=== PATIENT | male | born 1985 | race African-American/Black ===

== ENCOUNTER 2017-12-29 09:58 | Observation (INO) | payer SELFPAY ==
[2017-12-29 10:58] LABS: BILIRUBIN,URINE NEGATIVE (NEG); CLARITY,URINE CLEAR; COLOR,URINE YELLOW; GLUCOSE,URINE NEGATIVE (NEG); NITRITE,URINE NEGATIVE (NEG); PROTEIN,URINE NEGATIVE (NEG-TRACE)
[2017-12-29 11:07] LABS: RBC,URINE 0 /HPF (0-2); SQUAMOUS EPITHELIAL CELL,UR FEW /LPF
[2017-12-29 11:08] LABS: ADD MAN DIFF? YES; BACTERIA,URINE 0 /HPF (0-FEW); BASO # 0.1 x10^3/uL (0.0-0.2); BASO % 1 % (0-3); EOS # 0.2 x10^3/uL (0.0-0.7); EOS % 2 % (0-3); HEMOGLOBIN 12.2 g/dL (13.0-17.5); LYMPH # 2.8 x10^3/uL (1.0-4.8); LYMPH % 27 % (24-48); MEAN CORPUSCULAR HEMOGLOBIN 30 pg (25-35); MEAN CORPUSCULAR HGB CONC 36 g/dL (31-37); MEAN CORPUSCULAR VOLUME 83 fL (79-100); MONO # 2.2 x10^3/uL (0.0-1.1); MONO % 21 % (0-9); NEUT % 48 % (31-73); PLATELET COUNT 348 x10^3/uL (140-400); RED BLOOD COUNT 4.11 x10^6/uL (4.30-5.70); RED CELL DISTRIBUTION WIDTH 17.6 % (11.5-14.5); WBC,URINE RARE /HPF (0-4); WHITE BLOOD COUNT 10.3 x10^3/uL (4.0-11.0)
[2017-12-29] MEDS: IV NORMAL SALINE 1000ML BAG 1,000 ML IV ×3 (11:17→23:33)
[2017-12-29 11:19] LABS: ANION GAP 9 (6-14); BLOOD UREA NITROGEN 7 mg/dL (8-26); BUN/CREATININE RATIO 7 (6-20); CARBON DIOXIDE 25 mmol/L (21-32); CHLORIDE 107 mmol/L (98-107); GFR 103.5; GLUCOSE 106 mg/dL (70-99); POTASSIUM 4.1 mmol/L (3.5-5.1); SODIUM 141 mmol/L (136-145)
[2017-12-29] MEDS: MORPHINE SULFATE 4 MG/ML DISP.SYRIN. IV (11:19)
[2017-12-29 11:24] LABS: ALBUMIN 3.5 g/dL (3.4-5.0); ALBUMIN/GLOBULIN RATIO 0.9 (1.0-1.7); ALK PHOS 117 U/L (46-116); ALT (SGPT) 45 U/L (16-63); AST (SGOT) 30 U/L (15-37); TOTAL BILIRUBIN 1.2 mg/dL (0.2-1.0); TOTAL PROTEIN 7.6 g/dL (6.4-8.2)
[2017-12-29] MEDS: LIDOCAINE 1% Multi-Dose 50 ML VIAL. INJ (11:29)
[2017-12-29] MEDS ORDERED: PHENYLEPHRINE IV (11:30)
[2017-12-29] MEDS ORDERED: ONDANSETRON PF 4 MG/2 ML VIAL. IV (11:30)
[2017-12-29] MEDS ORDERED: MORPHINE SULFATE 4 MG/ML DISP.SYRIN. IV (11:30)
[2017-12-29] MEDS ORDERED: LIDOCAINE 1% Multi-Dose 20 ML VIAL. INJ (11:30)
[2017-12-29] MEDS ORDERED: NORMAL SALINE IV (11:30)
[2017-12-29 11:37] LABS: % BANDS 3 % (0-9); % EOS 3 % (0-5); % LYMPHS 30 % (24-48); % MONOS 14 % (0-10); % SEGS 50 % (35-66); NUCLEATED RBC 1
[2017-12-29 11:38] LABS: POLYCHROMASIA PRESENT
[2017-12-29 11:41] LABS: ANISOCYTOSIS MOD; TARGET CELLS PRESENT
[2017-12-29 11:55] LABS: SCHISTOCYTES FEW
[2017-12-29] MEDS ORDERED: NORMAL SALINE IC (12:00)
[2017-12-29] MEDS ORDERED: PHENYLEPHRINE IC (12:00)
[2017-12-29 12:12] LABS: SICKLE CELLS FEW
[2017-12-29 12:16] LABS: POIKILOCYTOSIS PRESENT; SPHEROCYTES OCC
[2017-12-29 12:56] LABS: BASE EXCESS ABG -3 mmol/L (-3-3); FIO2 ABG 21%; HCO3 ABG 20 mmol/L (21-28); PCO2 ABG 32 mmHg (35-46); PH ABG 7.42 (7.35-7.45); PO2 ABG 112 mmHg (85-108); SAT O2 ABG 97 % (92-99)
[2017-12-31 13:02] LABS: PLT ESTIMATE ADEQUATE (ADEQUATE)
== END 2017-12-30 12:08 | disposition home or self-care (01) ==
LOC: ER 09:58 → 5 SOUTH 11:23
DX: N48.30 Priapism, unspecified (principal); D57.1 Sickle-cell disease without crisis; F80.81 Childhood onset fluency disorder; Z82.49 Family history of ischemic heart disease and other diseases of the circulatory system
CPT/HCPCS: 36415; 36600; 80053; 81001; 82805; 85007; 85025; 96361; 96374; 96375; 99285; G0378; G0379; J2060; J2270; J7030

== ENCOUNTER 2018-01-07 03:58 | Emergency (ER) | payer SELFPAY | END 2018-01-07 05:10 | disposition home or self-care (01) | LOC: ER 03:58 | DX: N48.30 Priapism, unspecified (principal); D57.1 Sickle-cell disease without crisis | CPT/HCPCS: 54235; 99284 ==

== ENCOUNTER 2018-01-19 15:08 | Emergency (ER) | payer SELFPAY ==
[2018-01-19] MEDS: LIDOCAINE 1% Multi-Dose 50 ML VIAL. INJ (16:02)
[2018-01-19] MEDS: PHENYLEPHRINE IC (16:02)
[2018-01-19] MEDS: NORMAL SALINE IC (16:02)
[2018-01-19] MEDS: IV NORMAL SALINE 1000ML BAG 1,000 ML IV (16:11)
[2018-01-19] MEDS: TERBUTALINE 1 MG/ML VIAL. SQ (16:27)
[2018-01-19] MEDS: MORPHINE SULFATE 4 MG/ML DISP.SYRIN. IV (16:35)
[2018-01-19 16:47] LABS: BASE EXCESS ABG -3 mmol/L (-3-3); FIO2 ABG 21; HCO3 ABG 21 mmol/L (21-28); PCO2 ABG 32 mmHg (35-46); PH ABG 7.43 (7.35-7.45); PO2 ABG 67 mmHg (85-108); SAT O2 ABG 91 % (92-99)
== END 2018-01-19 18:37 | disposition home or self-care (01) ==
LOC: ER 15:08
DX: N48.30 Priapism, unspecified (principal); D57.3 Sickle-cell trait; F17.210 Nicotine dependence, cigarettes, uncomplicated
CPT/HCPCS: 36600; 82805; 96365; 96372; 96375; 99284-25; J2270; J3105; J7030; J7040

== ENCOUNTER 2018-01-25 23:26 | Emergency (ER) | payer SELFPAY | END 2018-01-26 01:08 | disposition home or self-care (01) | LOC: ER 23:26 | DX: N48.89 Other specified disorders of penis (principal); N48.30 Priapism, unspecified; D57.1 Sickle-cell disease without crisis | CPT/HCPCS: 99281 ==

== ENCOUNTER 2018-02-07 12:47 | Emergency (ER) | payer SELFPAY ==
[2018-02-07] MEDS ORDERED: LIDOCAINE WITH 8.4% SOD BICARB 3 ML DISP.SYRIN. (14:12)
[2018-02-07] MEDS: LIDOCAINE WITH 8.4% SOD BICARB 3 ML DISP.SYRIN. INJ (14:20)
== END 2018-02-07 14:14 | disposition short-term general hospital (02) ==
LOC: ER 12:47
DX: N48.30 Priapism, unspecified (principal); D57.3 Sickle-cell trait
CPT/HCPCS: 54220; 99291-25

== ENCOUNTER 2018-09-12 09:43 | Emergency (ER) | payer SELFPAY ==
[~2018-09-12] VITALS: Ht 182.9 cm; Wt 95.3 kg
[~2018-09-12 09:43] MED LIST: AMOX1TAB61 PO
[2018-09-12] MEDS ORDERED: fentaNYL PF VIAL 100 MCG/2 ML VIAL IV ONE ×2 (10:30→13:00)
[2018-09-12] MEDS ORDERED: TOTAL VOLUME IC ONE ×2 (10:30→11:15)
[2018-09-12] MEDS ORDERED: PHENYLEPHRINE IC ONE ×2 (10:30→11:15)
[2018-09-12 13:34] VITALS: BP 170/104
--- NOTE | 2018-09-12 13:35 | PHYS DOC ---
Past Medical History Past Medical History: Other Additional Past Medical Histor: priapism Past Surgical History: Other Additional Past Surgical Histo: priapism drainage, penial shunt, R hand Alcohol Use: Occasionally Drug Use: None Adult General Chief Complaint Chief Complaint: PROLONGED ERECTION [facility] HPI Patient is a 32-year-old male who presents with complaint of erection that he woke up with this morning at 6:00 AM. Erection has been present for approximately 4 hours at this point. He rates his pain to be a 10 out of 10. 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 Patient states that he is not sure what causes the priapism. He states that he usually has a prescription that he injects himself but states that his prescription ran out. Review of Systems Review of Systems Constitutional: Denies fever or chills [] Respiratory: Denies cough or shortness of breath [] Cardiovascular: No additional information not addressed in HPI [] GI: Denies abdominal pain, nausea, vomiting or diarrhea [] : Complains of priapism [] Integument: Denies rash or skin lesions [] All other systems were reviewed and found to be within normal limits, except as documented in this note. Current Medications Current Medications Current Medications Medications (Trade) Dose Ordered Sig/Parminder Start Time Stop Time Status Last Admin Dose Admin Fentanyl Citrate (Fentanyl 2ml Vial) 50 mcg 1X ONCE 09/12/18 13:00 09/12/18 13:01 DC 09/12/18 12:54 50 MCG Phenylephrine HCl 5 mg/Miscellaneous 10 ml @ 0 mls/hr 1X ONCE 09/12/18 11:15 09/12/18 11:16 DC 09/12/18 11:20 5 MLS/HR Allergies Allergies Allergies Coded Allergies Type Severity Reaction Last Updated Verified No Known Drug Allergies 10/31/17 No Physical Exam Physical Exam Constitutional: Well developed, well nourished, appears uncomfortable. [] HENT: Normocephalic, atraumatic, bilateral external ears normal, oropharynx moist, no oral exudates, nose normal. [] Eyes: PERRLA, EOMI, conjunctiva normal, no discharge. [] Neck: Normal range of motion, no tenderness, supple, no stridor. [] Cardiovascular:Heart rate regular rhythm, no murmur [] Lungs & Thorax: Bilateral breath sounds clear to auscultation [] Abdomen: Bowel sounds normal, soft, no tenderness. [] Skin: Warm, dry, no erythema, no rash. [] : Patient has erection present. [] Extremities: No tenderness, no cyanosis, no clubbing, ROM intact, no edema. [] Neurologic: Alert and oriented X 3, no focal deficits noted. [] Current Patient Data Vital Signs Vital Signs Date Time Temp Pulse Resp B/P (MAP) Pulse Ox O2 Delivery O2 Flow Rate FiO2 09/12/18 13:34 77 16 170/104 (126) 09/12/18 12:54 Room Air 09/12/18 09:48 97.8 97 97.8 EKG EKG [] Radiology/Procedures Radiology/Procedures [] Course & Med Decision Making Course & Med Decision Making Pertinent Labs and Imaging studies reviewed. (See chart for details) Patient moved to room upon arrival was evaluated by your medical staff after which an IV was established. Dr. Borrego, with urology, was consulted and he knows this patient well. Patient recommended obtaining concentrated phenylephrine with 50 mcg mixed in 10 mL of saline. He recommended injecting 1 mL every 2 minutes. Injections were performed with no success. Dr. Borrego was again contacted and he indicates that there is nothing further that he can do for this patient. He is recommending transfer of the patient to [facility]. Dragon Disclaimer Dragon Disclaimer This electronic medical record was generated, in whole or in part, using a voice recognition dictation system. Departure Departure Impression: Primary Impression: Priapism, unspecified Disposition: 02 TRANSFER [facility] Condition: GOOD Referrals: NO PCP (PCP) Additional Instructions: Present directly to emergency room at [facility]. Scripts No Active Prescriptions or Reported Meds AISHWARYA EVANS Jr. DO Sep 12, 2018 13:35
== END 2018-09-12 13:47 | disposition home or self-care (01) ==
LOC: ER 09:43
DX: N48.30 Priapism, unspecified (principal)
CPT/HCPCS: 96365; 96366; 96375; 96376; 99284; J3010

== ENCOUNTER 2019-02-05 12:19 | Emergency (ER) | payer SELFPAY ==
[~2019-02-05] VITALS: Ht 177.8 cm; Wt 95.3 kg
[2019-02-05 12:35] VITALS: BP 176/121
--- NOTE | 2019-02-05 12:47 | PHYS DOC ---
Past Medical History Past Medical History: Other Additional Past Medical Histor: priapism Past Surgical History: Other Additional Past Surgical Histo: priapism drainage, penial shunt, R hand Alcohol Use: Occasionally Drug Use: Phencyclidine Social History Narrative: LAST TAKEN PCP WAS 4 DAYS AGO Adult General Chief Complaint Chief Complaint: PENIS PROBLEM HPI HPI Patient is a 33 year old male who presents with erection since 7 AM. States that this has been happening daily for the last several week but he has been ta andrey phenylephrine which has made it go down. He is out of the phenylephrine. States he has seen multiple urologists but has no future follow up. Rates his pain as 10/10 and states it is cramping with pressure. Review of Systems Review of Systems Constitutional: Denies fever or chills [] Eyes: Denies change in visual acuity, redness, or eye pain [] HENT: Denies nasal congestion or sore throat [] Respiratory: Denies cough or shortness of breath [] Cardiovascular: No additional information not addressed in HPI [] GI: Denies abdominal pain, nausea, vomiting, bloody stools or diarrhea [] : Denies dysuria or hematuria. Reports erection lasting since 7 AM. Musculoskeletal: Denies back pain or joint pain [] Integument: Denies rash or skin lesions [] Neurologic: Denies headache, focal weakness or sensory changes [] Endocrine: Denies polyuria or polydipsia [] Complete systems were reviewed and found to be within normal limits, except as documented in this note. Current Medications Current Medications Current Medications Medications (Trade) Dose Ordered Sig/Parminder Start Time Stop Time Status Last Admin Dose Admin Phenylephrine HCl (PHENYLEPHRINE in 0.9% NACL PF) 0.25 mg 1X ONCE 02/05/19 13:15 02/05/19 13:16 DC Allergies Allergies Allergies Coded Allergies Type Severity Reaction Last Updated Verified No Known Drug Allergies 10/31/17 No Physical Exam Physical Exam Constitutional: Well developed, well nourished, no acute distress, non-toxic appearance. [] HENT: Normocephalic, atraumatic, bilateral external ears normal, oropharynx moist, no oral exudates, nose normal. [] Eyes: PERRLA, EOMI, conjunctiva normal, no discharge. [] Neck: Normal range of motion, no tenderness, supple, no stridor. [] Cardiovascular:Heart rate regular rhythm, no murmur [] Lungs & Thorax: Bilateral breath sounds clear to auscultation [] Abdomen: Bowel sounds normal, soft, no tenderness, no masses, no pulsatile masses. [] Skin: Warm, dry, no erythema, no rash. [] Back: No tenderness, no CVA tenderness. [] Extremities: No tenderness, no cyanosis, no clubbing, ROM intact, no edema. [] Neurologic: Alert and oriented X 3, normal motor function, normal sensory function, no focal deficits noted. [] Psychologic: Affect normal, judgement normal, mood normal. [] : Erection Current Patient Data Vital Signs Vital Signs Date Time Temp Pulse Resp B/P (MAP) Pulse Ox O2 Delivery O2 Flow Rate FiO2 02/05/19 12:35 98.1 69 18 176/121 (139) 96 Room Air 98.1 EKG EKG [] Radiology/Procedures Radiology/Procedures [] Course & Med Decision Making Course & Med Decision Making Pertinent Labs and Imaging studies reviewed. (See chart for details) Has Erection since 7 AM. Will [facility] Urology. Discussed case with SHERRI Roger for Urology who states they are familiar with patient. She recommended having patient self-administer phenylephrine and states they have asked him to follow up with [facility] for a shunt. Patient injected self and erection went down. Will d/c home with script. Will write paper script for 7 days of Phenylephrine 250 mcg/mL. Dragon Disclaimer Dragon Disclaimer This electronic medical record was generated, in whole or in part, using a voice recognition dictation system. Departure Departure Impression: Primary Impression: Priapism Disposition: 01 HOME, SELF-CARE Condition: STABLE Referrals: NO PCP (PCP) Patient Instructions: Priapism Additional Instructions: Thank you for visiting [facility]. We appreciate you trusting us with your care. If any additional problems come up don't hesitate to return to visit us. Please follow up with your primary care provider so they can plan additional care if needed and know about the problem that you had. If symptoms worsen come back to the Emergency Department. Any concerning symptoms that start such as chest pain, shortness of Air, weakness or numbness on one side of the body, running high fevers or any other concerning symptoms return to the ER. Please fill your medications at any pharmacy and follow the prescription instructions. Please follow up with [facility] to have a shunt placed per Urology here at [place]. Scripts No Active Prescriptions or Reported Meds ALEJANDRA TURNER APRN Feb 05, 2019 12:47
[2019-02-05] MEDS ORDERED: PHENYLEPHRINE in 0.9% NACL PF 1 MG/10 ML SYRINGE. IV STA (12:56)
[2019-02-05] MEDS ORDERED: PHENYLEPHRINE in 0.9% NACL PF 1 MG/10 ML SYRINGE. IV ONE (13:15)
== END 2019-02-05 14:35 | disposition home or self-care (01) ==
LOC: ER 12:19
DX: N48.30 Priapism, unspecified (principal)
CPT/HCPCS: 96372; 99281; 99283

== ENCOUNTER 2019-02-06 10:00 | Emergency (ER) | payer SELFPAY ==
[~2019-02-06] VITALS: Ht 177.8 cm; Wt 90.7 kg
--- NOTE | 2019-02-06 10:07 | PHYS DOC ---
Past Medical History Past Medical History: Other Additional Past Medical Histor: priapism Past Surgical History: Other Additional Past Surgical Histo: priapism drainage, penial shunt, R hand Alcohol Use: Occasionally Drug Use: Phencyclidine Adult General Chief Complaint Chief Complaint: PROLONGED ERECTION [facility] HPI Patient is a 33 year old male who presents with erection since 8:30 AM. I am familiar with this patient. Was seen here yesterday for the same complaint. Was given a prescription yesterday but states [facility] didn't have the medication and states the pharmacy that does is not open until Thursday. States that this has been happening daily for the last several week but he has been taking phenylephrine which has made it go down. States he has seen multiple urologists but has no future follow up. Rates his pain as 10/10 and states it is cramping with pressure. Review of Systems Review of Systems Constitutional: Denies fever or chills [] Eyes: Denies change in visual acuity, redness, or eye pain [] HENT: Denies nasal congestion or sore throat [] Respiratory: Denies cough or shortness of breath [] Cardiovascular: No additional information not addressed in HPI [] GI: Denies abdominal pain, nausea, vomiting, bloody stools or diarrhea [] : Denies dysuria or hematuria. Reports erection. Musculoskeletal: Denies back pain or joint pain [] Integument: Denies rash or skin lesions [] Neurologic: Denies headache, focal weakness or sensory changes [] Endocrine: Denies polyuria or polydipsia [] Complete systems were reviewed and found to be within normal limits, except as documented in this note. Current Medications Current Medications Current Medications Medications (Trade) Dose Ordered Sig/[facility] Start Time Stop Time Status Last Admin Dose Admin Phenylephrine HCl (PHENYLEPHRINE in 0.9% NACL PF) 0.25 mg 1X ONCE 02/06/19 10:15 02/06/19 10:17 DC 02/06/19 10:15 0.25 MG Allergies Allergies Allergies Coded Allergies Type Severity Reaction Last Updated Verified No Known Drug Allergies 10/31/17 No Physical Exam Physical Exam Constitutional: Well developed, well nourished, no acute distress, non-toxic appearance. [] HENT: Normocephalic, atraumatic, bilateral external ears normal, oropharynx moist, no oral exudates, nose normal. [] Eyes: PERRLA, EOMI, conjunctiva normal, no discharge. [] Neck: Normal range of motion, no tenderness, supple, no stridor. [] Cardiovascular:Heart rate regular rhythm, no murmur [] Lungs & Thorax: Bilateral breath sounds clear to auscultation [] Abdomen: Bowel sounds normal, soft, no tenderness, no masses, no pulsatile masses. [] Skin: Warm, dry, no erythema, no rash. [] Back: No tenderness, no CVA tenderness. [] Extremities: No tenderness, no cyanosis, no clubbing, ROM intact, no edema. [] Neurologic: Alert and oriented X 3, normal motor function, normal sensory function, no focal deficits noted. [] Psychologic: Affect normal, judgement normal, mood normal. [] : Has an Erection Current Patient Data Vital Signs Vital Signs Date Time Temp Pulse Resp B/P (MAP) Pulse Ox O2 Delivery O2 Flow Rate FiO2 02/06/19 10:29 99.4 73 18 186/118 (140) 97 Room Air 99.4 EKG EKG [] Radiology/Procedures Radiology/Procedures [] Course & Med Decision Making Course & Med Decision Making Pertinent Labs and Imaging studies reviewed. (See chart for details) Discussed case with Urology yesterday. Will continue to follow their recommendations. Will give patient medication as they recommended for him to self-administer. Patient is agreeable to plan and can get medication tomorrow. Erection has subsided so will discharge home. Dragon Disclaimer Dragon Disclaimer This electronic medical record was generated, in whole or in part, using a voice recognition dictation system. Departure Departure Impression: Primary Impression: Priapism Disposition: 01 HOME, SELF-CARE Condition: STABLE Referrals: NO PCP (PCP) Patient Instructions: Priapism Additional Instructions: Please get your medication filled as we discussed yesterday. Follow up with urology. Thank you for visiting [facility]. We appreciate you trusting us with your care. If any additional problems come up don't hesitate to return to visit us. Please follow up with your primary care provider so they can plan additional care if needed and know about the problem that you had. If symptoms worsen come back to the Emergency Department. Any concerning symptoms that start such as chest pain, shortness of Air, weakness or numbness on one side of the body, running high fevers or any other concerning symptoms return to the ER. Scripts No Active Prescriptions or Reported Meds ALEJANDRA TURNER APRN Feb 06, 2019 10:07
[2019-02-06] MEDS ORDERED: PHENYLEPHRINE in 0.9% NACL PF 1 MG/10 ML SYRINGE. IV ONE (10:15)
[2019-02-06 10:29] VITALS: BP 186/118
== END 2019-02-06 11:01 | disposition home or self-care (01) ==
LOC: ER 10:00
DX: N48.30 Priapism, unspecified (principal)
CPT/HCPCS: 96374; 99284; J2370

== ENCOUNTER 2019-04-17 06:08 | Emergency (ER) | payer SELFPAY ==
[~2019-04-17] VITALS: Ht 185.4 cm; Wt 95.3 kg
[2019-04-17 06:10] VITALS: BP 193/103
--- NOTE | 2019-04-17 06:39 | PHYS DOC ---
Past Medical History Past Medical History: Sickle Cell Disease, Other Additional Past Medical Histor: priapism Past Surgical History: Other Additional Past Surgical Histo: priapism drainage, penial shunt, R hand Alcohol Use: None Drug Use: None, Phencyclidine Adult General Chief Complaint Chief Complaint: PROLONGED ERECTION HPI HPI 33-year-old male presenting the emergency room today with priapism this started about 5:00 this morning. He has pain in the penis there is a throbbing nonradiating pain that is constant. He has a long history of priapism and has had surgeries however these have not helped. He continues to have priapism in the morning every day but uses phenylephrine to treat his priapism. Review of systems is negative for chest pain shortness of breath abdominal pain nausea vomiting. All other review of systems is negative unless otherwise noted in history of present illness. ED course: 33-year-old male presenting with priapism for 1-1/2 hours. Risk and benefits and alternatives were discussed with the patient on treatment. We will use intra-cavernous phenylephrine and drainage. 10 mL of blood was drained from the right venous corpus cavernosum. 250 �g of phenylephrine in 1 mL of fluid was injected into the left corpus cavernosum. Patient's penis reached detumescence and the patient's pain improved substantially. I spoke with urology on-call (sandra/george/lily) who recommended filling the patient's phenylephrine prescription and referring him to [facility] for a proximal shunt surgery which they've already talked to him about. Patient was resting comfortably examination room. He can return if priapism returns. Review of Systems Review of Systems SEE ABOVE. Current Medications Current Medications Current Medications Medications (Trade) Dose Ordered Sig/Parminder Start Time Stop Time Status Last Admin Dose Admin Lidocaine HCl (Lidocaine 1% 20ml Vial) 10 ml 1X ONCE 04/17/19 07:00 04/17/19 07:01 DC 04/17/19 06:58 10 ML Phenylephrine HCl (PHENYLEPHRINE in 0.9% NACL PF) 1 mg 1X ONCE 04/17/19 07:00 04/17/19 07:01 Cancel Phenylephrine HCl 1 mg/Sodium Chloride 4 ml @ 4 mls/hr 1X ONCE 04/17/19 07:30 04/17/19 08:29 04/17/19 06:58 4 MLS/HR Allergies Allergies Allergies Coded Allergies Type Severity Reaction Last Updated Verified No Known Drug Allergies 10/31/17 No Physical Exam Physical Exam SEE ABOVE Constitutional: Well developed, well nourished, no acute distress, non-toxic appearance. [] HENT: Normocephalic, atraumatic, bilateral external ears normal, oropharynx moist, no oral exudates, nose normal. [] Eyes: PERRLA, EOMI, conjunctiva normal, no discharge. [] Neck: Normal range of motion, no tenderness, supple, no stridor. [] Cardiovascular:Heart rate regular rhythm, no murmur [] Lungs & Thorax: Bilateral breath sounds clear to auscultation [] Abdomen: Bowel sounds normal, soft, no tenderness, no masses, no pulsatile ma sses. [] , Penis is erect. testicles nl. Skin: Warm, dry, no erythema, no rash. [] Back: No tenderness, no CVA tenderness. [] Extremities: No tenderness, no cyanosis, no clubbing, ROM intact, no edema. [] Neurologic: Alert and oriented X 3, normal motor function, normal sensory function, no focal deficits noted. [] Psychologic: Affect normal, judgement normal, mood normal. [] Current Patient Data Vital Signs Vital Signs Date Time Temp Pulse Resp B/P (MAP) Pulse Ox O2 Delivery O2 Flow Rate FiO2 04/17/19 06:10 98.4 88 20 193/103 (133) 96 Room Air 98.4 EKG EKG [] Radiology/Procedures Radiology/Procedures [] Course & Med Decision Making Course & Med Decision Making Pertinent Labs and Imaging studies reviewed. (See chart for details) [] Dragon Disclaimer Dragon Disclaimer This electronic medical record was generated, in whole or in part, using a voice recognition dictation system. Departure Departure Impression: Primary Impression: Calli Disposition: 01 HOME, SELF-CARE Condition: STABLE Referrals: NO PCP (PCP) Patient Instructions: Calli Additional Instructions: Thank you for allowing us to participate in your care today. Return to the emergency department you have any new or worsening symptoms, or if you are concerned for any reason. Return to emergency department if you have any new or concerning symptoms including but not limited to worsening erection, prolonged erection, penile pain, bleeding, fever, chills, nausea, vomiting, intractable pain, any new rashes, chest pain, shortness of air, uncontrolled bleeding, difficulty breathing, and/or vision loss. Follow up with your [facility] urology in 1-2 days. Call your Primary Doctor tomorrow and inform them of your visit today. If you do not have a primary care provider we are happy to provide you with a list of our primary care providers contact information. This condition should be evaluated by your primary care physician and any recommended consulting services for continued management within 2 days after discharge. If at any time, you are having difficulty getting into your primary care doctor or a specialist, return to the emergency department. Scripts Phenylephrine HCl/0.9% NaCl/Pf (Phenylephrine 0.5 mg/5 ml-Ns) 0.5 Mg/5 Ml Syringe 0.5 MG IV PRN PRN for PAIN, #20 SYR 0 Refills for Priapism. Prov: KEVEN HARGROVE MD 04/17/19 KEVEN HARGROVE MD Apr 17, 2019 06:39
[2019-04-17] MEDS ORDERED: PHENYLEPHRINE in 0.9% NACL PF 1 MG/10 ML SYRINGE. IV ONE (07:00)
[2019-04-17] MEDS ORDERED: LIDOCAINE 1% Multi-Dose 20 ML VIAL. ID ONE (07:00)
[2019-04-17] MEDS ORDERED: PHENYLEPHRINE MC ONE (07:30)
[2019-04-17] MEDS ORDERED: NORMAL SALINE MC ONE (07:30)
[2019-04-17] MEDS ORDERED: [UNRECOGNIZED DRUG - CODE] IV (07:43)
== END 2019-04-17 07:58 | disposition home or self-care (01) ==
LOC: ER 06:08
DX: N48.30 Priapism, unspecified (principal)
CPT/HCPCS: 54235; 99284-25

== ENCOUNTER 2019-05-17 12:36 | Emergency (ER) | payer SELFPAY ==
[~2019-05-17] VITALS: Ht 185.4 cm; Wt 95.3 kg
[~2019-05-17 12:36] MED LIST changes: +[UNRECOGNIZED DRUG - CODE] IV
[2019-05-17 12:50] VITALS: BP 175/102
--- NOTE | 2019-05-17 13:13 | PHYS DOC ---
Past Medical History Past Medical History: Sickle Cell Disease, Other Additional Past Medical Histor: priapism Past Surgical History: Other Additional Past Surgical Histo: priapism drainage, penial shunt, R hand Alcohol Use: None Drug Use: None, Phencyclidine Adult General Chief Complaint Chief Complaint: PROLONGED ERECTION HPI HPI Patient is a 33 year old male who presents for priapism that has been ongoing since 6 AM. This is a chronic condition for the patient and he has been seen by urology and I'm familiar with this patient. The patient has been told multiple times to have the procedure done at urology. Denies any pain at this time. Review of Systems Review of Systems Constitutional: Denies fever or chills [] Eyes: Denies change in visual acuity, redness, or eye pain [] HENT: Denies nasal congestion or sore throat [] Respiratory: Denies cough or shortness of breath [] Cardiovascular: No additional information not addressed in HPI [] GI: Denies abdominal pain, nausea, vomiting, bloody stools or diarrhea [] : Reports Erection. Musculoskeletal: Denies back pain or joint pain [] Integument: Denies rash or skin lesions [] Neurologic: Denies headache, focal weakness or sensory changes [] Endocrine: Denies polyuria or polydipsia [] Complete systems were reviewed and found to be within normal limits, except as documented in this note. Current Medications Current Medications Current Medications Medications (Trade) Dose Ordered Sig/[facility] Start Time Stop Time Status Last Admin Dose Admin Phenylephrine HCl (PHENYLEPHRINE in 0.9% NACL PF) 0.25 mg 1X STAT 05/17/19 13:14 05/17/19 13:15 DC Allergies Allergies Allergies Coded Allergies Type Severity Reaction Last Updated Verified No Known Drug Allergies 10/31/17 No Physical Exam Physical Exam Constitutional: Well developed, well nourished, no acute distress, non-toxic appearance. [] HENT: Normocephalic, atraumatic, bilateral external ears normal, oropharynx moist, no oral exudates, nose normal. [] Eyes: PERRLA, EOMI, conjunctiva normal, no discharge. [] Neck: Normal range of motion, no tenderness, supple, no stridor. [] Skin: Warm, dry, no erythema, no rash. [] Back: No tenderness, no CVA tenderness. [] Extremities: No tenderness, no cyanosis, no clubbing, ROM intact, no edema. [] Neurologic: Alert and oriented X 3, normal motor function, normal sensory function, no focal deficits noted. [] Psychologic: Affect normal, judgement normal, mood normal. [] : Erection. Current Patient Data Vital Signs Vital Signs Date Time Temp Pulse Resp B/P (MAP) Pulse Ox O2 Delivery O2 Flow Rate FiO2 05/17/19 12:50 97.9 63 18 175/102 (126) 97 Room Air 97.9 EKG EKG [] Radiology/Procedures Radiology/Procedures [] Course & Med Decision Making Course & Med Decision Making Pertinent Labs and Imaging studies reviewed. (See chart for details) Discussed this patient with urology previously the recommendation has been to give Phenylephrine for the patient to self infect. Will do this today as well. Will not write patient a prescription as I received a call 2 weeks ago regarding [facility] questioning a prescription that I wrote this summer that the patient had changed to 10 refills. The patient admitted forging the prescr iption in the room today. Erection improved after injection of phenylephrine. Will dc home. Dragon Disclaimer Dragon Disclaimer This electronic medical record was generated, in whole or in part, using a voice recognition dictation system. Departure Departure Impression: Primary Impression: Priapism Disposition: HOME, SELF-CARE Condition: STABLE Referrals: NO PCP (PCP) ЕЛЕНА CHAU MD Patient Instructions: Priapism Additional Instructions: Thank you for visiting [facility]. We appreciate you trusting us with your care. If any additional problems come up don't hesitate to return to visit us. Please follow up with your primary care provider so they can plan additional care if needed and know about the problem that you had. If symptoms worsen come back to the Emergency Department. Any concerning symptoms that start such as chest pain, shortness of air, weakness or numbness on one side of the body, running high fevers or any other concerning symptoms return to the ER. Please get a primary care doctor and go to urology as you have been asked to do. ALEJANDRA TURNER APRN May 17, 2019 13:13
[2019-05-17] MEDS ORDERED: PHENYLEPHRINE in 0.9% NACL PF 1 MG/10 ML SYRINGE. IV STA (13:14)
== END 2019-05-17 15:01 | disposition home or self-care (01) ==
LOC: ER 12:36
DX: N48.30 Priapism, unspecified (principal)
CPT/HCPCS: 54235; 99284

== ENCOUNTER 2019-05-20 06:45 | Emergency (ER) | payer SELFPAY ==
[~2019-05-20] VITALS: Ht 185.4 cm; Wt 90.7 kg
[2019-05-20] MEDS ORDERED: PHENYLEPHRINE in 0.9% NACL PF 1 MG/10 ML SYRINGE. IV ONE ×2 (07:30→08:15)
--- NOTE | 2019-05-20 08:01 | PHYS DOC ---
Past Medical History Past Medical History: No Pertinent History Additional Past Medical Histor: priapism Past Surgical History: No Surgical History Additional Past Surgical Histo: priapism drainage, penial shunt, R hand Alcohol Use: Occasionally Drug Use: None Adult General Chief Complaint Chief Complaint: TESTICULAR PAIN OR INJURY HPI HPI 33-year-old male presenting the emergency department today with priapism. He has come to the emergency department multiple times for priapism. He has been seen by urologists who have done a dorsal shunt. He continues to have problems. He has been referred to urology multiple times but has not followed up with urology. Today this morning he had priapism and has pain in the penis. It is a throbbing nonradiating moderate pain without alleviating factors. He denies any testicular pain. Review of systems is negative for chest pain shortness of breath fevers chills. All other review of systems is negative. ED course: 33-year-old male presenting with priapism. I spoke with Dr. flores who recommended injection with phenylephrine and drainage here in the emergency department with outpatient referral to for possible proximal shunt. Procedure note: 23-gauge fine-needle placed in the 10 o'clock position of the penis. 5 mL of blood withdrawn. A 2.5 mL of 250 micrograms of phenylephrine injected into the corpus cavernosum. Concentration is 100 mcg/mL. Patient tolerated procedure well. No complications. 2 x 2 placed over the site of injection. Patient's pain did not improve and so another injection of 2 mL of 200 �g of phenylephrine were injected a second time. no complications. Patient continues to have an erection with pain. I spoke with Dr. flores a second time he recommended transfer to for further treatment and care. Pt was then transferred to for further treatment and care. Current Medications Current Medications Current Medications Medications (Trade) Dose Ordered Sig/Parminder Start Time Stop Time Status Last Admin Dose Admin Phenylephrine HCl (PHENYLEPHRINE in 0.9% NACL PF) 0.2 mg 1X ONCE 05/20/19 08:15 05/20/19 08:16 DC 05/20/19 08:15 0.2 MG Allergies Allergies Allergies Coded Allergies Type Severity Reaction Last Updated Verified No Known Drug Allergies 10/31/17 No Physical Exam Physical Exam Constitutional: Well developed, well nourished, no acute distress, non-toxic appearance. [] HENT: Normocephalic, atraumatic, bilateral external ears normal, oropharynx moist, no oral exudates, nose normal. [] Eyes: PERRLA, EOMI, conjunctiva normal, no discharge. [] Neck: Normal range of motion, no tenderness, supple, no stridor. [] Cardiovascular:Heart rate regular rhythm, no murmur [] Lungs & Thorax: Bilateral breath sounds clear to auscultation [] Abdomen: Bowel sounds normal, soft, no tenderness, no masses, no pulsatile masses. [] : Penile priapism present. Testicles within normal limits. Otherwise unremarkable exam Skin: Warm, dry, no erythema, no rash. [] Back: No tenderness, no CVA tenderness. [] Extremities: No tenderness, no cyanosis, no clubbing, ROM intact, no edema. [] Neurologic: Alert and oriented X 3, normal motor function, normal sensory function, no focal deficits noted. [] Psychologic: Affect normal, judgement normal, mood normal. [] Current Patient Data Vital Signs Vital Signs Date Time Temp Pulse Resp B/P (MAP) Pulse Ox O2 Delivery O2 Flow Rate FiO2 05/20/19 10:02 76 197/106 (136) 17 Room Air 05/20/19 06:45 98.6 17 98.6 EKG EKG [] Radiology/Procedures Radiology/Procedures [] Course & Med Decision Making Course & Med Decision Making Pertinent Labs and Imaging studies reviewed. (See chart for details) [] Dragon Disclaimer Dragon Disclaimer This electronic medical record was generated, in whole or in part, using a voice recognition dictation system. Departure Departure Impression: Primary Impression: Priapism Disposition: 02 TRANSFER [facility] Condition: GUARDED (Pt needs higher level of care) Referrals: NO PCP (PCP) KEVEN HARGROVE MD May 20, 2019 08:01
[2019-05-20 10:02] VITALS: BP 197/106
== END 2019-05-20 10:10 | disposition home or self-care (01) ==
LOC: ER 06:45
DX: N48.30 Priapism, unspecified (principal)
CPT/HCPCS: 54235; 99285; J2370

== ENCOUNTER 2019-09-25 20:43 | Observation (INO) | payer SELFPAY ==
[~2019-09-25] VITALS: Ht 185.4 cm; Wt 97.5 kg
[2019-09-25 21:20] LABS: BASO # 0.1 x10^3/uL (0.0-0.2); BASO % 1 % (0-3); EOS # 0.1 x10^3/uL (0.0-0.7); EOS % 1 % (0-3); HEMATOCRIT 36.2 % (39.0-53.0); HEMOGLOBIN 12.1 g/dL (13.0-17.5); LYMPH # 6.7 x10^3/uL (1.0-4.8); LYMPH % 44 % (24-48); MEAN CORPUSCULAR HEMOGLOBIN 30 pg (25-35); MEAN CORPUSCULAR HGB CONC 33 g/dL (31-37); MEAN CORPUSCULAR VOLUME 90 fL (79-100); MONO # 0.9 x10^3/uL (0.0-1.1); MONO % 6 % (0-9); NEUT # 7.4 x10^3/uL (1.8-7.7); NEUT % 49 % (31-73); PLATELET COUNT 245 x10^3/uL (140-400); RED BLOOD COUNT 4.03 x10^6/uL (4.30-5.70); RED CELL DISTRIBUTION WIDTH 21.3 % (11.5-14.5); WHITE BLOOD COUNT 15.2 x10^3/uL (4.0-11.0)
--- NOTE | 2019-09-25 21:22 | PHYS DOC ---
Past Medical History Past Medical History: No Pertinent History Additional Past Medical Histor: priapism Past Surgical History: No Surgical History Additional Past Surgical Histo: priapism drainage, penial shunt, R hand Smoking Status: Current Every Day Smoker Alcohol Use: Occasionally Drug Use: None Adult General Chief Complaint Chief Complaint: ALCOHOL INTOXICATION HPI HPI 34-year-old male presents to the emergency department via EMS with altered m ental status. Patient will arouse to verbal stimuli, states he's and drinking alcohol today as well as did some PCP. He denies any complaints of pain does complain of some nausea. Patient was found outside unknown exactly how long he was outdoors. His rectal temperature is 94.7. Patient's clothes are wet. He has no obvious injury on examination. Patient is able to answer questions on exam. He is alert and oriented x 3. Review of Systems Review of Systems Constitutional: chills Respiratory: Denies cough or shortness of breath [] Cardiovascular: No additional information not addressed in HPI [] GI: Denies abdominal pain, + nausea, no vomiting, bloody stools or diarrhea [] Musculoskeletal: Denies back pain or joint pain [] Neurologic: Denies headache, focal weakness or sensory changes [] All other systems were reviewed and found to be within normal limits, except as documented in this note. Allergies Allergies Allergies Coded Allergies Type Severity Reaction Last Updated Verified No Known Drug Allergies 10/31/17 No Physical Exam Physical Exam Constitutional: Well developed, well nourished, no acute distress, non-toxic appearance. [] HENT: Normocephalic, atraumatic, bilateral external ears normal, oropharynx moist, no oral exudates, nose normal. [] Eyes: PERRLA, EOMI, conjunctiva normal, no discharge. [] Neck: Normal range of motion, no tenderness, supple, no stridor. [] Cardiovascular:Heart rate regular rhythm, no murmur [] Lungs & Thorax: Bilateral breath sounds clear to auscultation [] Abdomen: Bowel sounds normal, soft, no tenderness, no masses, no pulsatile masses. [] Skin: Warm, dry, no erythema, no rash. [] Back: No tenderness, no CVA tenderness. [] Extremities: No tenderness, no edema. [] Neurologic: Alert and oriented X 3, no focal deficits noted. [] Psychologic: Affect normal, judgement normal, mood normal. [] Current Patient Data Vital Signs Vital Signs Date Time Temp Pulse Resp B/P (MAP) Pulse Ox O2 Delivery O2 Flow Rate FiO2 09/25/19 22:18 97.5 97.5 09/25/19 21:30 90 16 105/75 (85) 96 Room Air Lab Values Laboratory Tests Test 09/25/19 21:10 09/25/19 22:15 White Blood Count 15.2 x10^3/uL (4.0-11.0) H Red Blood Count 4.03 x10^6/uL (4.30-5.70) L Hemoglobin 12.1 g/dL (13.0-17.5) L Hematocrit 36.2 % (39.0-53.0) L Mean Corpuscular Volume 90 fL (79-100) Mean Corpuscular Hemoglobin 30 pg (25-35) Mean Corpuscular Hemoglobin Concent 33 g/dL (31-37) Red Cell Distribution Width 21.3 % (11.5-14.5) H Platelet Count 245 x10^3/uL (140-400) Neutrophils (%) (Auto) 49 % (31-73) Lymphocytes (%) (Auto) 44 % (24-48) Monocytes (%) (Auto) 6 % (0-9) Eosinophils (%) (Auto) 1 % (0-3) Basophils (%) (Auto) 1 % (0-3) Neutrophils # (Auto) 7.4 x10^3/uL (1.8-7.7) Lymphocytes # (Auto) 6.7 x10^3/uL (1.0-4.8) H Monocytes # (Auto) 0.9 x10^3/uL (0.0-1.1) Eosinophils # (Auto) 0.1 x10^3/uL (0.0-0.7) Basophils # (Auto) 0.1 x10^3/uL (0.0-0.2) Segmented Neutrophils % 56 % (35-66) Lymphocytes % 41 % (24-48) Monocytes % 1 % (0-10) Eosinophils % 1 % (0-5) Basophils % 1 % (0-3) Platelet Estimate Adequate (ADEQUATE) Polychromasia Slight Anisocytosis Mod Sickle Cells Occ Target Cells Many Schistocytes Few Sodium Level 138 mmol/L (136-145) Potassium Level 4.1 mmol/L (3.5-5.1) Chloride Level 102 mmol/L (98-107) Carbon Dioxide Level 15 mmol/L (21-32) L Anion Gap 21 (6-14) H Blood Urea Nitrogen 7 mg/dL (8-26) L Creatinine 1.4 mg/dL (0.7-1.3) H Estimated GFR (Cockcroft-Gault) 69.4 BUN/Creatinine Ratio 5 (6-20) L Glucose Level 203 mg/dL (70-99) H Calcium Level 9.1 mg/dL (8.5-10.1) Magnesium Level 3.2 mg/dL (1.8-2.4) H Total Bilirubin 0.7 mg/dL (0.2-1.0) Aspartate Amino Transferase (AST) 30 U/L (15-37) Alanine Aminotransferase (ALT) 32 U/L (16-63) Alkaline Phosphatase 164 U/L (46-116) H Total Protein 8.8 g/dL (6.4-8.2) H Albumin 3.9 g/dL (3.4-5.0) Albumin/Globulin Ratio 0.8 (1.0-1.7) L Ethyl Alcohol Level 63 mg/dL (0-10) H Urine Collection Type Unknown Urine Color Yellow Urine Clarity Clear Urine pH 5.5 Urine Specific [place] 1.010 Urine Protein 100 mg/dL (NEG-TRACE) Urine Glucose (UA) Negative mg/dL (NEG) Urine Ketones (Stick) Negative mg/dL (NEG) Urine Blood Moderate (NEG) Urine Nitrite Negative (NEG) Urine Bilirubin Negative (NEG) Urine Urobilinogen Dipstick 0.2 mg/dL (0.2 mg/dL) Urine Leukocyte Esterase Negative (NEG) Urine RBC Occ /HPF (0-2) Urine WBC Occ /HPF (0-4) Urine Squamous Epithelial Cells None /LPF Urine Bacteria 0 /HPF (0-FEW) Urine Hyaline Casts Few /HPF Urine Mucus Slight /LPF Urine Opiates Screen Neg (NEG) Urine Methadone Screen Neg (NEG) Urine Barbiturates Neg (NEG) Urine Phencyclidine Screen Pos (NEG) Urine Amphetamine/Methamphetamine Neg (NEG) Urine Benzodiazepines Screen Neg (NEG) Urine Cocaine Screen Neg (NEG) Urine Cannabinoids Screen Neg (NEG) Urine Ethyl Alcohol Pos (NEG) Laboratory Tests 2/9/20 21:10 Laboratory Tests 09/25/19 21:10 EKG EKG [] Radiology/Procedures Radiology/Procedures [facility] [address] [place], [place] [id number] IMAGING REPORT Signed PATIENT: ALONZO CORONA ACCOUNT: [id number] : 1985 LOCATION: ER AGE: 34 SEX: M EXAM STATUS: PRE ER ORD. PHYSICIAN: OWEN LANGLEY MD REASON: AMS - intoxicated/PCP PROCEDURE: CT HEAD WO CONTRAST Exam: CT head INDICATION: Altered mental status TECHNIQUE: Sequential axial images through the head were obtained without the administration of IV contrast. Comparisons: None FINDINGS: No focal parenchymal lesion or hemorrhage is identified. There is no midline shift or sulcal effacement. No acute vascular territory infarction is identified. Gillespie-white distinction is preserved. The ventricular system is within normal limits without compression hydrocephalus. The basal cisterns are well maintained. The visualized portions of the paranasal sinuses and mastoid air cells are well-pneumatized. No acute fractures. IMPRESSION: No acute intracranial abnormality. Exposure: One or more of the following in the visualized dose reduction techniques were utilized for this examination: 1. Automated exposure control 2. Adjustment of the MA and/or KV according to patient size Use of iterative of reconstructive technique Electronically signed by: Christy West MD (09/25/2019 9:23 PM) [id number] DICTATED and SIGNED BY: CHRISTY WEST MD DATE: 09/25/192122[] Course & Med Decision Making Course & Med Decision Making Pertinent Labs and Imaging studies reviewed. (See chart for details) []34-year-old male presents to the emergency department via EMS with altered m ental status. Patient will arouse to verbal stimuli, states he's and drinking alcohol today as well as did some PCP. He denies any complaints of pain does complain of some nausea. Patient was found outside unknown exactly how long he was outdoors. His rectal temperature is 94.7. Patient's clothes are wet. He has no obvious injury on examination. Patient is able to answer questions on exam. He is alert and oriented x 3. Labs/Imaging reviewed CT head negative for acute process IVF continued Evidence of hypothermia - bear hugger placed, temp improving Patient will be admitted and observed Siria Disclaimer Siria Disclaimer This electronic medical record was generated, in whole or in part, using a voice recognition dictation system. Departure Departure Impression: Primary Impression: PCP (phencyclidine) abuse Additional Impression: Hypothermia Disposition: ADMITTED INPATIENT Admitting Physician: BOBBY Condition: STABLE Referrals: NO PCP (PCP) Critical Care Time Critical care time was 35 minutes exclusive of procedures. Problem Qualifiers Additional Impression: Hypothermia Encounter type: initial encounter Qualified Codes: T68.XXXA - Hypothermia, initial encounter OWEN LANGLEY MD Sep 25, 2019 21:22
--- NOTE | 2019-09-25 21:26 | RAD ---
Exam: CT head INDICATION: Altered mental status TECHNIQUE: Sequential axial images through the head were obtained without the administration of IV contrast. Comparisons: None FINDINGS: No focal parenchymal lesion or hemorrhage is identified. There is no midline shift or sulcal effacement. No acute vascular territory infarction is identified. Gillespie-white distinction is preserved. The ventricular system is within normal limits without compression hydrocephalus. The basal cisterns are well maintained. The visualized portions of the paranasal sinuses and mastoid air cells are well-pneumatized. No acute fractures. IMPRESSION: No acute intracranial abnormality. Exposure: One or more of the following in the visualized dose reduction techniques were utilized for this examination: 1. Automated exposure control 2. Adjustment of the MA and/or KV according to patient size Use of iterative of reconstructive technique Electronically signed by: Christy Cuellar MD (09/25/2019 9:23 PM) [id number]
[2019-09-25 21:31] LABS: CALCIUM 9.1 mg/dL (8.5-10.1); CREATININE 1.4 mg/dL (0.7-1.3); GFR 69.4; POTASSIUM 4.1 mmol/L (3.5-5.1)
[2019-09-25 21:34] LABS: ALBUMIN 3.9 g/dL (3.4-5.0); ALBUMIN/GLOBULIN RATIO 0.8 (1.0-1.7); MAGNESIUM 3.2 mg/dL (1.8-2.4); TOTAL BILIRUBIN 0.7 mg/dL (0.2-1.0); TOTAL PROTEIN 8.8 g/dL (6.4-8.2)
[2019-09-25 21:54] LABS: % BASOS 1 % (0-3); % EOS 1 % (0-5); % LYMPHS 41 % (24-48); % MONOS 1 % (0-10); % SEGS 56 % (35-66)
[2019-09-25 22:16] LABS: ANISOCYTOSIS MOD; PLT ESTIMATE ADEQUATE (ADEQUATE); POLYCHROMASIA SLIGHT; SCHISTOCYTES FEW; SICKLE CELLS OCC
[2019-09-25 22:17] LABS: TARGET CELLS MANY
[2019-09-25 22:21] LABS: BILIRUBIN,URINE NEGATIVE (NEG); CLARITY,URINE CLEAR; COLOR,URINE YELLOW; NITRITE,URINE NEGATIVE (NEG); PH,URINE 5.5; PROTEIN,URINE 100 mg/dL (NEG-TRACE); UROBILINOGEN,URINE 0.2 mg/dL (0.2 mg/dL)
[2019-09-25 22:29] LABS: BARBITURATES NEG (NEG); BENZODIAZEPINES NEG (NEG); CANNABINOIDS NEG (NEG); COCAINE NEG (NEG); METHADONE NEG (NEG); OPIATES NEG (NEG); PHENCYCLIDINE POS (NEG)
[2019-09-25 22:30] LABS: BACTERIA,URINE 0 /HPF (0-FEW); RBC,URINE OCC /HPF (0-2); WBC,URINE OCC /HPF (0-4)
[2019-09-25 22:31] LABS: AMPHETAMINE/METHAMPHETAMINE NEG (NEG); HYALINE CASTS, URINE FEW /HPF
[2019-09-25] MEDS ORDERED: IV NORMAL SALINE 1000ML BAG 1,000 ML IV SCH (23:45)
[2019-09-25] MEDS ORDERED: ACETAMINOPHEN 325 MG TABLET. PO PRN (23:45)
[2019-09-25] MEDS ORDERED: ONDANSETRON PF 4 MG/2 ML VIAL. IV PRN (23:45)
--- NOTE | 2019-09-25 23:55 | NUR ---
ADMISSION NOTE: Patient arrived to room 569 via gurney accompanied by ED staff. Patient able to transfer self to bed. Bed low, locked, call light within reach. Patient complains of hunger at this time, box lunch provided. Will continue to monitor.
[2019-09-26 00:02] VITALS: BP 155/98
[2019-09-26] MEDS ORDERED: SILD20TA2 PO (00:03)
[2019-09-26] MEDS ORDERED: FOLIC ACID 1MG TAB PO (00:03)
[2019-09-26] MEDS ORDERED: HYDR500C16 PO (00:03)
[2019-09-26 03:17] VITALS: BP 146/94
[2019-09-26 04:01] LABS: BASO % 0 % (0-3); EOS % 0 % (0-3); HEMATOCRIT 37.5 % (39.0-53.0); HEMOGLOBIN 12.5 g/dL (13.0-17.5); LYMPH # 1.7 x10^3/uL (1.0-4.8); LYMPH % 11 % (24-48); MEAN CORPUSCULAR HEMOGLOBIN 29 pg (25-35); MEAN CORPUSCULAR HGB CONC 34 g/dL (31-37); MEAN CORPUSCULAR VOLUME 86 fL (79-100); MONO # 2.1 x10^3/uL (0.0-1.1); MONO % 13 % (0-9); NEUT # 12.4 x10^3/uL (1.8-7.7); NEUT % 76 % (31-73); PLATELET COUNT 326 x10^3/uL (140-400); RED BLOOD COUNT 4.34 x10^6/uL (4.30-5.70); RED CELL DISTRIBUTION WIDTH 21.8 % (11.5-14.5); WHITE BLOOD COUNT 16.3 x10^3/uL (4.0-11.0)
[2019-09-26 04:54] LABS: ALBUMIN 3.9 g/dL (3.4-5.0); ALBUMIN/GLOBULIN RATIO 0.8 (1.0-1.7); CALCIUM 8.9 mg/dL (8.5-10.1); CREATININE 1.1 mg/dL (0.7-1.3); GFR 91.6; POTASSIUM 4.2 mmol/L (3.5-5.1); TOTAL PROTEIN 8.5 g/dL (6.4-8.2)
[2019-09-26 07:00] VITALS: BP_SYST 127
[2019-09-26] MEDS ORDERED: FLU VAX QS 2019-20 (36MOS+)/PF 0.5 ML SYRINGE. VAX IM ONE (09:00)
--- NOTE | 2019-09-26 09:45 | PDOC1 ---
History and Physical Date of Admission Date of Admission DATE: 09/26/19 TIME: 09:45 Identification/Chief Complaint Chief Complaint presented to the emergency department via EMS with altered mental status. did arouse to verbal stimuli, states he's and drinking alcohol 09/25 4 12 oz beers as well as did some PCP. denies any complaints of pain does complain of some nausea. Patient was found outside unknown exactly how long he was outdoors. His rectal temperature was 94.7. Patient's clothes were wet. He has no obvious injury on examination. Patient is able to answer questions on exam. He is alert and oriented x 3. wants to go home tonight , agrees to attend AA Past Medical History Past Medical History Past Medical History Past Medical History: No Pertinent History Additional Past Medical Histor: priapism Past Surgical History: No Surgical History Additional Past Surgical Histo: priapism drainage, penial shunt, R hand Smoking Status: Current Every Day Smoker Alcohol Use: Occasionally Drug Use: None Past Medical History Cardiovascular: No pertinent hx Pulmonary: No pertinent hx Heme/Onc: Sickle cell trait Renal/: PCP Past Surgical History Past Surgical History: No pertinent history Family History Family History: Hypertension Social History ALCOHOL: social Drugs: PCP Lives: with Family fhx htn Cardiovascular: No pertinent hx Pulmonary: No pertinent hx Heme/Onc: No pertinent hx, Sickle cell trait Renal/: Other Past Surgical History Past Surgical History: No pertinent history Family History Family History: Hypertension Social History Smoke: <1 pack per day ALCOHOL: heavy Drugs: None, Other (PCP) Current Problem List Problem List Problems Medical Problems: (1) Hypothermia Status: Acute (2) PCP (phencyclidine) abuse Status: Acute Current Medications Current Medications Current Medications Ondansetron HCl (Zofran) 4 mg PRN Q8HRS PRN IV NAUSEA/VOMITING; Start 09/25/19 at 23:45; Stop 09/26/19 at 23:44 Sodium Chloride 1,000 ml @ 100 mls/hr Q10H IV Last administered on 09/25/19at 23:57; Start 09/25/19 at 23:45; Stop 09/26/19 at 23:44 Acetaminophen (Tylenol) 650 mg PRN Q4HRS PRN PO FEVER; Start 09/25/19 at 23:45; Stop 09/26/19 at 23:44 Influenza Virus Vaccine Quadrival (Afluria Quad (3yr Up) Syringe) 0.5 ml ONCE ONCE VAX IM Last administered on 09/26/19at 01:15; Start 09/26/19 at 09:00; Stop 09/26/19 at 09:01; Status DC Active Scripts Active Reported Hydroxyurea 500 Mg Capsule 500 Mg PO DAILY [Folic Acid 1MG Tab] 1MG Tab 1 Tab PO DAILY Sildenafil (Sildenafil Citrate) 20 Mg Tablet 1 Tab PO DAILY Allergies Allergies: Coded Allergies: No Known Drug Allergies (Unverified , 10/31/17) ROS Review of System Review of Systems Review of Systems Constitutional: chills Respiratory: Denies cough or shortness of breath [] Cardiovascular: No additional information not addressed in HPI [] GI: Denies abdominal pain, + nausea, no vomiting, bloody stools or diarrhea [] Musculoskeletal: Denies back pain or joint pain [] Neurologic: Denies headache, focal weakness or sensory changes [] 14 PT systems were reviewed and found to be within normal limits, except as documented . General: YES: Chills, Fatigue PSYCHOLOGICAL ROS: YES: Anxiety Eyes: No Blurry vision, No Decreased vision, No Double vision, No Dry eyes, No Excessive tearing, No Eye Pain, No Itchy Eyes, No Loss of vision, No Photophobia, No Scotomata, No Uses contacts, No Uses glasses, No Other Hematological and Lymphatic: No: Bleeding Problems, Blood Clots, Blood Transfusions, Brusing, Night Sweats, Pallor, Swollen Lymph Nodes, Other Respiratory: No: Cough, Hemoptysis, Orthopnea, Pleuritic Pain, Shortness of breath, SOB with excertion, Sputum Changes, Stridor, Tachypnea, Wheezing, Other Cardiovascular: No Chest Pain, No Palpitations, No Orthopnea, No Paroxysmal Noc. Dyspnea, No Edema, No Lt Headedness, No Other Gastrointestinal: No Nausea, No Vomiting, No Abdominal Pain, No Diarrhea, No Constipation, No Melena, No Hematochezia, No Other Musculoskeletal: Yes Gait Disturbance, Yes Joint Stiffness Neurological: Yes Confusion Skin: No Dry Skin, No Eczema, No Hair Changes, No Lumps, No Mole Changes, No Mottling, No Nail Changes, No Pruritus, No Rash, No Skin Lesion Changes, No Other, No Acne Physical Exam Physical Exam Physical Exam Physical Exam Constitutional: Well developed, well nourished, no acute distress, non-toxic appearance. [] HENT: Normocephalic, atraumatic, bilateral external ears normal, oropharynx moist, no oral exudates, nose normal. [] Eyes: PERRLA, EOMI, conjunctiva normal, no discharge. [] Neck: Normal range of motion, no tenderness, supple, no stridor. [] Cardiovascular:Heart rate regular rhythm, no murmur [] Lungs & Thorax: Bilateral breath sounds clear to auscultation [] Abdomen: Bowel sounds normal, soft, no tenderness, no masses, no pulsatile masses. [] Skin: Warm, dry, no erythema, no rash. [] Back: No tenderness, no CVA tenderness. [] Extremities: No tenderness, no edema. [] Neurologic: Alert and oriented X 3, no focal deficits noted. [] Psychologic: Affect normal, judgement normal, mood normal. [] General: Alert, Oriented X3, Cooperative, No acute distress HEENT: EOMI, Mucous membr. moist/pink Lungs: Clear to auscultation, Normal air movement Heart: RRR Breasts: Not examined Abdomen: Soft Rectal Exam: not examined PELVIC: Examination not indicated Extremities: No cyanosis Neuro: Normal speech, Cranial nerves 3-12 NL Vitals Vitals Vital Signs Date Time Temp Pulse Resp B/P (MAP) Pulse Ox O2 Delivery O2 Flow Rate FiO2 09/26/19 07:00 98.0 95 19 127/ 96 Room Air 98.0 Labs Labs Laboratory Tests Test 09/25/19 21:10 09/25/19 22:15 09/26/19 03:10 White Blood Count 15.2 x10^3/uL (4.0-11.0) 16.3 x10^3/uL (4.0-11.0) Red Blood Count 4.03 x10^6/uL (4.30-5.70) 4.34 x10^6/uL (4.30-5.70) Hemoglobin 12.1 g/dL (13.0-17.5) 12.5 g/dL (13.0-17.5) Hematocrit 36.2 % (39.0-53.0) 37.5 % (39.0-53.0) Mean Corpuscular Volume 90 fL (79-100) 86 fL (79-100) Mean Corpuscular Hemoglobin 30 pg (25-35) 29 pg (25-35) Mean Corpuscular Hemoglobin Concent 33 g/dL (31-37) 34 g/dL (31-37) Red Cell Distribution Width 21.3 % (11.5-14.5) 21.8 % (11.5-14.5) Platelet Count 245 x10^3/uL (140-400) 326 x10^3/uL (140-400) Neutrophils (%) (Auto) 49 % (31-73) 76 % (31-73) Lymphocytes (%) (Auto) 44 % (24-48) 11 % (24-48) Monocytes (%) (Auto) 6 % (0-9) 13 % (0-9) Eosinophils (%) (Auto) 1 % (0-3) 0 % (0-3) Basophils (%) (Auto) 1 % (0-3) 0 % (0-3) Neutrophils # (Auto) 7.4 x10^3/uL (1.8-7.7) 12.4 x10^3/uL (1.8-7.7) Lymphocytes # (Auto) 6.7 x10^3/uL (1.0-4.8) 1.7 x10^3/uL (1.0-4.8) Monocytes # (Auto) 0.9 x10^3/uL (0.0-1.1) 2.1 x10^3/uL (0.0-1.1) Eosinophils # (Auto) 0.1 x10^3/uL (0.0-0.7) 0.0 x10^3/uL (0.0-0.7) Basophils # (Auto) 0.1 x10^3/uL (0.0-0.2) 0.0 x10^3/uL (0.0-0.2) Segmented Neutrophils % 56 % (35-66) Lymphocytes % 41 % (24-48) Monocytes % 1 % (0-10) Eosinophils % 1 % (0-5) Basophils % 1 % (0-3) Platelet Estimate Adequate (ADEQUATE) Polychromasia Slight Anisocytosis Mod Sickle Cells Occ Target Cells Many Schistocytes Few Sodium Level 138 mmol/L (136-145) 142 mmol/L (136-145) Potassium Level 4.1 mmol/L (3.5-5.1) 4.2 mmol/L (3.5-5.1) Chloride Level 102 mmol/L (98-107) 105 mmol/L (98-107) Carbon Dioxide Level 15 mmol/L (21-32) 24 mmol/L (21-32) Anion Gap 21 (6-14) 13 (6-14) Blood Urea Nitrogen 7 mg/dL (8-26) 8 mg/dL (8-26) Creatinine 1.4 mg/dL (0.7-1.3) 1.1 mg/dL (0.7-1.3) Estimated GFR (Cockcroft-Gault) 69.4 91.6 BUN/Creatinine Ratio 5 (6-20) 7 (6-20) Glucose Level 203 mg/dL (70-99) 107 mg/dL (70-99) Calcium Level 9.1 mg/dL (8.5-10.1) 8.9 mg/dL (8.5-10.1) Magnesium Level 3.2 mg/dL (1.8-2.4) Total Bilirubin 0.7 mg/dL (0.2-1.0) 1.0 mg/dL (0.2-1.0) Aspartate Amino Transf (AST/SGOT) 30 U/L (15-37) 74 U/L (15-37) Alanine Aminotransferase (ALT/SGPT) 32 U/L (16-63) 48 U/L (16-63) Alkaline Phosphatase 164 U/L (46-116) 151 U/L (46-116) Total Protein 8.8 g/dL (6.4-8.2) 8.5 g/dL (6.4-8.2) Albumin 3.9 g/dL (3.4-5.0) 3.9 g/dL (3.4-5.0) Albumin/Globulin Ratio 0.8 (1.0-1.7) 0.8 (1.0-1.7) Ethyl Alcohol Level 63 mg/dL (0-10) Urine Collection Type Unknown Urine Color Yellow Urine Clarity Clear Urine pH 5.5 Urine Specific [place] 1.010 Urine Protein 100 mg/dL (NEG-TRACE) Urine Glucose (UA) Negative mg/dL (NEG) Urine Ketones (Stick) Negative mg/dL (NEG) Urine Blood Moderate (NEG) Urine Nitrite Negative (NEG) Urine Bilirubin Negative (NEG) Urine Urobilinogen Dipstick 0.2 mg/dL (0.2 mg/dL) Urine Leukocyte Esterase Negative (NEG) Urine RBC Occ /HPF (0-2) Urine WBC Occ /HPF (0-4) Urine Squamous Epithelial Cells None /LPF Urine Bacteria 0 /HPF (0-FEW) Urine Hyaline Casts Few /HPF Urine Mucus Slight /LPF Urine Opiates Screen Neg (NEG) Urine Methadone Screen Neg (NEG) Urine Barbiturates Neg (NEG) Urine Phencyclidine Screen Pos (NEG) Urine Amphetamine/Methamphetamine Neg (NEG) Urine Benzodiazepines Screen Neg (NEG) Urine Cocaine Screen Neg (NEG) Urine Cannabinoids Screen Neg (NEG) Urine Ethyl Alcohol Pos (NEG) Laboratory Tests Test 09/25/19 21:10 09/25/19 22:15 09/26/19 03:10 White Blood Count 15.2 x10^3/uL (4.0-11.0) 16.3 x10^3/uL (4.0-11.0) Red Blood Count 4.03 x10^6/uL (4.30-5.70) 4.34 x10^6/uL (4.30-5.70) Hemoglobin 12.1 g/dL (13.0-17.5) 12.5 g/dL (13.0-17.5) Hematocrit 36.2 % (39.0-53.0) 37.5 % (39.0-53.0) Mean Corpuscular Volume 90 fL (79-100) 86 fL (79-100) Mean Corpuscular Hemoglobin 30 pg (25-35) 29 pg (25-35) Mean Corpuscular Hemoglobin Concent 33 g/dL (31-37) 34 g/dL (31-37) Red Cell Distribution Width 21.3 % (11.5-14.5) 21.8 % (11.5-14.5) Platelet Count 245 x10^3/uL (140-400) 326 x10^3/uL (140-400) Neutrophils (%) (Auto) 49 % (31-73) 76 % (31-73) Lymphocytes (%) (Auto) 44 % (24-48) 11 % (24-48) Monocytes (%) (Auto) 6 % (0-9) 13 % (0-9) Eosinophils (%) (Auto) 1 % (0-3) 0 % (0-3) Basophils (%) (Auto) 1 % (0-3) 0 % (0-3) Neutrophils # (Auto) 7.4 x10^3/uL (1.8-7.7) 12.4 x10^3/uL (1.8-7.7) Lymphocytes # (Auto) 6.7 x10^3/uL (1.0-4.8) 1.7 x10^3/uL (1.0-4.8) Monocytes # (Auto) 0.9 x10^3/uL (0.0-1.1) 2.1 x10^3/uL (0.0-1.1) Eosinophils # (Auto) 0.1 x10^3/uL (0.0-0.7) 0.0 x10^3/uL (0.0-0.7) Basophils # (Auto) 0.1 x10^3/uL (0.0-0.2) 0.0 x10^3/uL (0.0-0.2) Segmented Neutrophils % 56 % (35-66) Lymphocytes % 41 % (24-48) Monocytes % 1 % (0-10) Eosinophils % 1 % (0-5) Basophils % 1 % (0-3) Platelet Estimate Adequate (ADEQUATE) Polychromasia Slight Anisocytosis Mod Sickle Cells Occ Target Cells Many Schistocytes Few Sodium Level 138 mmol/L (136-145) 142 mmol/L (136-145) Potassium Level 4.1 mmol/L (3.5-5.1) 4.2 mmol/L (3.5-5.1) Chloride Level 102 mmol/L (98-107) 105 mmol/L (98-107) Carbon Dioxide Level 15 mmol/L (21-32) 24 mmol/L (21-32) Anion Gap 21 (6-14) 13 (6-14) Blood Urea Nitrogen 7 mg/dL (8-26) 8 mg/dL (8-26) Creatinine 1.4 mg/dL (0.7-1.3) 1.1 mg/dL (0.7-1.3) Estimated GFR (Cockcroft-Gault) 69.4 91.6 BUN/Creatinine Ratio 5 (6-20) 7 (6-20) Glucose Level 203 mg/dL (70-99) 107 mg/dL (70-99) Calcium Level 9.1 mg/dL (8.5-10.1) 8.9 mg/dL (8.5-10.1) Magnesium Level 3.2 mg/dL (1.8-2.4) Total Bilirubin 0.7 mg/dL (0.2-1.0) 1.0 mg/dL (0.2-1.0) Aspartate Amino Transf (AST/SGOT) 30 U/L (15-37) 74 U/L (15-37) Alanine Aminotransferase (ALT/SGPT) 32 U/L (16-63) 48 U/L (16-63) Alkaline Phosphatase 164 U/L (46-116) 151 U/L (46-116) Total Protein 8.8 g/dL (6.4-8.2) 8.5 g/dL (6.4-8.2) Albumin 3.9 g/dL (3.4-5.0) 3.9 g/dL (3.4-5.0) Albumin/Globulin Ratio 0.8 (1.0-1.7) 0.8 (1.0-1.7) Ethyl Alcohol Level 63 mg/dL (0-10) Urine Collection Type Unknown Urine Color Yellow Urine Clarity Clear Urine pH 5.5 Urine Specific [place] 1.010 Urine Protein 100 mg/dL (NEG-TRACE) Urine Glucose (UA) Negative mg/dL (NEG) Urine Ketones (Stick) Negative mg/dL (NEG) Urine Blood Moderate (NEG) Urine Nitrite Negative (NEG) Urine Bilirubin Negative (NEG) Urine Urobilinogen Dipstick 0.2 mg/dL (0.2 mg/dL) Urine Leukocyte Esterase Negative (NEG) Urine RBC Occ /HPF (0-2) Urine WBC Occ /HPF (0-4) Urine Squamous Epithelial Cells None /LPF Urine Bacteria 0 /HPF (0-FEW) Urine Hyaline Casts Few /HPF Urine Mucus Slight /LPF Urine Opiates Screen Neg (NEG) Urine Methadone Screen Neg (NEG) Urine Barbiturates Neg (NEG) Urine Phencyclidine Screen Pos (NEG) Urine Amphetamine/Methamphetamine Neg (NEG) Urine Benzodiazepines Screen Neg (NEG) Urine Cocaine Screen Neg (NEG) Urine Cannabinoids Screen Neg (NEG) Urine Ethyl Alcohol Pos (NEG) Images Images Exam: CT head INDICATION: Altered mental status TECHNIQUE: Sequential axial images through the head were obtained without the administration of IV contrast. Comparisons: None FINDINGS: No focal parenchymal lesion or hemorrhage is identified. There is no midline shift or sulcal effacement. No acute vascular territory infarction is identified. Gillespie-white distinction is preserved. The ventricular system is within normal limits without compression hydrocephalus. The basal cisterns are well maintained. The visualized portions of the paranasal sinuses and mastoid air cells are well-pneumatized. No acute fractures. IMPRESSION: No acute intracranial abnormality. Exposure: One or more of the following in the visualized dose reduction techniques were utilized for this examination: 1. Automated exposure control 2. Adjustment of the MA and/or KV according to patient size Use of iterative of reconstructive technique Electronically signed by: Gerardo West MD (09/25/2019 9:23 PM) [id number] DICTATED and SIGNED BY: GERARDO WEST MD DATE: 09/25/192122 VTE Prophylaxis Ordered VTE Prophylaxis Devices: No VTE Pharmacological Prophylaxi: No Assessment/Plan Assessment/Plan Impression: PCP (phencyclidine) abuse POLYSUBSTANCE ABUSE Hypothermia ALTERED MENTAL STATUS SEC SUBSTANCE ABUSE LEUKOCYTOSIS ADMITTED PAT CONSULT BLOOD CULTURE D/C TONIGHT ATTEND AA DAILY., AVOID ALL ILLICIT DRUGS LENA LINDA MD Sep 26, 2019 09:45
[2019-09-26 10:35] VITALS: BP 129/84
[2019-09-26 14:54] VITALS: BP 125/80
[2019-09-26] MEDS ORDERED: THIAMINE 100 MG TABLET. PO SCH (17:00)
[2019-09-26] MEDS ORDERED: FOLIC ACID 1 MG TABLET. PO SCH (17:00)
[2019-09-26] MEDS ORDERED: Folic Acid PO (17:14)
[2019-09-26] MEDS ORDERED: ACET325T9 PO (17:14)
--- NOTE | 2019-09-26 17:15 | DISCH ---
DISCHARGE INSTRUCTIONS Condition on Discharge Condition on Discharge: Stable Activity After Discharge Activity Instructions for Disc: No restrictions Driving Instructions after Dis: Do not drive, Do not drive today Weight Bearing Status after Di: No restrictions Diet after Discharge Diet after Discharge: Regular Liquid Texture: Thin Liquid Wound Incision Care Wound/Incision Care: No wound care needed Checks after Discharge Checks after discharge: Check blood press - daily Contacting the [facility] after DC Call your doctor for: If your condition worsens Treatment/Equipment after DC Adaptive Equipment Issued: None Warfarin Follow-Up Warfarin Follow UP: ATTEND AA DAILY, AVOID ALL ILLICIT DRUGS LENA LINDA MD Sep 26, 2019 17:15
--- NOTE | 2019-09-26 19:07 | NUR ---
Discharge Note: [facility] Discharge instructions and discharge home medications reviewed with Patient and a copy given. All questions have been answered and understanding verbalized. The following instructions and handouts were given: patient visit report, medication information, education. Discontinued lines and drains: peripheral IV, tip intact. Patient discharged to home with self care via private vehicle. Patient left unit awake, in stable condition, with all personal belongings.
== END 2019-09-26 18:20 | disposition home or self-care (01) ==
LOC: ER 20:43 → 5 SOUTH 22:23
PROVIDERS: ADMIT Internal Medicine; ATTEND Internal Medicine
DX: T68.XXXA Hypothermia, initial encounter (principal); F16.10 Hallucinogen abuse, uncomplicated; R41.82 Altered mental status, unspecified; D72.829 Elevated white blood cell count, unspecified
CPT/HCPCS: 36415; 70450; 80053; 80307; 81001; 83735; 85007; 85025; 90471; 90686; 96360; 96361; 99291; G0378; G0480; J7030; G0379

== ENCOUNTER 2020-08-28 07:57 | Emergency (ER) | payer SELFPAY ==
[~2020-08-28] VITALS: Ht 177.8 cm; Wt 103.7 kg
[~2020-08-28 07:57] MED LIST changes: +ACET325T9 PO; +FOLIC ACID 1MG TAB PO; +Folic Acid PO; +HYDR500C16 PO; +SILD20TA4 PO; +[UNRECOGNIZED DRUG - CODE] IV; -[UNRECOGNIZED DRUG - CODE] IV
--- NOTE | 2020-08-28 08:51 | PHYS DOC ---
Past Medical History Past Medical History: No Pertinent History Additional Past Medical Histor: priapism Past Surgical History: Other Additional Past Surgical Histo: priapism drainage, penial shunt, R hand Smoking Status: Current Every Day Smoker Additional Information: 1-2 cigarettes daily Alcohol Use: Heavy Additional Information: daily beer drinker Drug Use: None General Adult EDM: Chief Complaint: TOE PROBLEM HPI: HPI: Patient is a 34 year old male presented to the ER today for evaluation of pain and swelling of the right 2nd toe. No recent injury. Patient said when he was young, a horse stepped on his right second toe, has have problem with pain off an on since. No fever. no numbness . Review of Systems: Review of Systems: Constitutional: Denies fever or chills. [] Eyes: Denies change in visual acuity. [] Respiratory: Denies cough or shortness of breath. [] Musculoskeletal: Denies back pain , positive for right 2nd toe pain Integument: Denies rash. [] Neurologic: Denies headache, focal weakness or sensory changes. [] Heart Score: Risk Factors: Risk Factors: DM, Current or recent (<one month) smoker, HTN, HLP, family history of CAD, obesity. Risk Scores: Score 0 - 3: 2.5% MACE over next 6 weeks - Discharge Home Score 4 - 6: 20.3% MACE over next 6 weeks - Admit for Clinical Observation Score 7 - 10: 72.7% MACE over next 6 weeks - Early Invasive Strategies Allergies: Allergies: Allergies Coded Allergies Type Severity Reaction Last Updated Verified No Known Drug Allergies 08/28/20 No Physical Exam: PE: Constitutional: Well developed, well nourished, no acute distress, non-toxic appearance. [] HENT: Normocephalic, atraumatic, bilateral external ears normal, Eyes: PERRLA, EOMI, conjunctiva normal, no discharge. [] Cardiovascular:Heart rate regular rhythm, no murmur [] Lungs & Thorax: Bilateral breath sounds clear to auscultation [] Skin: Warm, dry, no erythema, no rash. [] Back: No tenderness, no CVA tenderness. [] Extremities: right 2nd toe is tender, warm to the touch, mild swelling. Neurologic: Alert and oriented X 3, normal motor function, normal sensory function, no focal deficits noted. [] Psychologic: Affect normal, judgement normal, mood normal. [] Current Patient Data: Vital Signs: Vital Signs Date Time Temp Pulse Resp B/P (MAP) Pulse Ox O2 Delivery O2 Flow Rate FiO2 08/28/20 08:22 99.6 115 20 139/103 (115) 97 Room Air 99.6 EKG: EKG: [] Radiology/Procedures: Radiology/Procedures: [] Course & Med Decision Making: Course & Med Decision Making Pertinent Labs and Imaging studies reviewed. (See chart for details) Patient is suspected to have gouty arthritis of the right second toe. He will be discharged home with anti-inflammatory medication. [employer] Disclaimer: Link[employer] Disclaimer: This electronic medical record was generated, in whole or in part, using a voice recognition dictation system. Departure Departure Impression: Primary Impression: Gouty arthritis of toe Disposition: 01 DC HOME SELF CARE/HOMELESS Condition: STABLE Referrals: NO PCP (PCP) follow up with your doctor next week Patient Instructions: Gout Additional Instructions: Thank you for visiting our Emergency Department. We appreciate you trusting us with your care. If any additional problems come up don't hesitate to return to visit us. Please follow up with your primary care provider so they can plan additional care if needed and know about the problem that you had. If symptoms worsen come back to the Emergency Department. Any concerning symptoms that start such as chest pain, shortness of air, weakness or numbness on one side of the body, running high fevers or any other concerning symptoms return to the ER. Scripts Naproxen Sodium (ANAPROX DS) 550 Mg Tablet 1 TAB PO BID PRN for PAIN for 10 Days, #20 TAB 0 Refills Prov: IVAN BUSH DO 08/28/20 IVAN BUSH DO Aug 28, 2020 08:51
[2020-08-28] MEDS ORDERED: methylPREDNISolone SOD SUCC PF 125 MG/2 ML VIAL. IM ONE (09:00)
[2020-08-28] MEDS ORDERED: KETOROLAC 60 MG/2 ML VIAL. IM ONE (09:00)
[2020-08-28 09:16] VITALS: BP 137/103
[2020-08-28] MEDS ORDERED: NAPR-682 PO (09:57)
== END 2020-08-28 10:01 | disposition home or self-care (01) ==
LOC: ER 07:57
DX: M10.9 Gout, unspecified (principal); M79.674 Pain in right toe(s); R60.0 Localized edema; F17.210 Nicotine dependence, cigarettes, uncomplicated; F10.10 Alcohol abuse, uncomplicated; Z98.890 Other specified postprocedural states
CPT/HCPCS: 96372; 99284; J1885; J2930

== ENCOUNTER 2021-05-13 10:59 | Emergency (ER) | payer SELFPAY ==
[~2021-05-13] VITALS: Ht 185.4 cm; Wt 99.0 kg
[~2021-05-13 10:59] MED LIST changes: +NAPR-682 PO
[2021-05-13 11:15] VITALS: BP 120/75
--- NOTE | 2021-05-13 11:59 | PHYS DOC ---
Past Medical History Past Medical History: No Pertinent History Additional Past Medical Histor: priapism (AYANNA ESTRADA BOOKS BINDER) Past Surgical History: Other Additional Past Surgical Histo: priapism drainage, penial shunt, R hand (AYANNA ESTRADA APRN) Smoking Status: Current Every Day Smoker Alcohol Use: Heavy Drug Use: None (AYANNA ESTRADA APRN) General Adult EDM: Chief Complaint: EYE PROBLEMS HPI: HPI: Patient is a 35 year old male who presents with 2 days of sudden blurred vision in the left eye. He denies any injury or getting anything in his eye. He states he does not well he has not been outside with any kind of yard work or chopping any kind of work or anything could fly back in his eye. He denies any pain or total loss of vision. He states is just blurry. He denies any drainage or swelling. He denies any light sensitivity. He denies a headache or dizziness. Patient's history is smoking, priapism and penile shaft. (AYANNA ESTRADA BOOKS BINDER) Review of Systems: Review of Systems: Constitutional: Denies fever or chills. [] Eyes: + change in visual acuity. [] HENT: Denies nasal congestion or sore throat. [] Respiratory: Denies cough or shortness of breath. [] Cardiovascular: Denies chest pain or edema. [] GI: Denies abdominal pain, nausea, vomiting, bloody stools or diarrhea. [] : Denies dysuria. [] Musculoskeletal: Denies back pain or joint pain. [] Integument: Denies rash. [] Neurologic: Denies headache, focal weakness or sensory changes. [] Endocrine: Denies polyuria or polydipsia. [] Lymphatic: Denies swollen glands. [] Psychiatric: Denies depression or anxiety. [] (AYANNA ESTRADA BOOKS BINDER) Heart Score: C/O Chest Pain: No (AYANNA ESTRADA APRN) Current Medications: Current Medications Medications (Trade) Dose Ordered Sig/Parminder Start Time Stop Time Status Last Admin Dose Admin Fluorescein Sodium (Ful-Felecia) 1 strip 1X ONCE 05/13/21 12:00 05/13/21 12:01 05/13/21 11:36 1 STRIP Tetracaine HCl (Tetracaine) 1 drop 1X ONCE 05/13/21 12:00 05/13/21 12:01 05/13/21 11:36 1 DROP (AYANNA ESTRADA APRN) Allergies: Allergies: Allergies Coded Allergies Type Severity Reaction Last Updated Verified No Known Drug Allergies 08/28/20 No (AYANNA ESTRADA APRN) Physical Exam: PE: Constitutional: Well developed, well nourished, no acute distress, non-toxic appearance. [] HENT: Normocephalic, atraumatic, bilateral external ears normal, oropharynx moist, no oral exudates, nose normal. [] Eyes: PERRLA, EOMI, conjunctiva normal, no discharge. [] Neck: Normal range of motion, no tenderness, supple, no stridor. [] Cardiovascular:Heart rate regular rhythm, no murmur [] Lungs & Thorax: Bilateral breath sounds clear to auscultation [] Abdomen: Bowel sounds normal, soft, no tenderness, no masses, no pulsatile masses. [] Skin: Warm, dry, no erythema, no rash. [] Back: No tenderness, no CVA tenderness. [] Extremities: No tenderness, no cyanosis, no clubbing, ROM intact, no edema. [] Neurologic: Alert and oriented X 3, normal motor function, normal sensory functi on, no focal deficits noted. [] Psychologic: Affect normal, judgement normal, mood normal. [] Normal physical exam (AYANNA ESTRADA APRN) Current Patient Data: Vital Signs: Vital Signs Date Time Temp Pulse Resp B/P (MAP) Pulse Ox O2 Delivery O2 Flow Rate FiO2 05/13/21 11:15 98.0 98 16 120/75 (90) 95 Room Air 98.0 (AYANNA ESTRADA APRN) EKG: EKG: [] (AYANNA ESTRADA APRN) Radiology/Procedures: Radiology/Procedures: [] (AYANNA ESTRADA APRN) Course & Med Decision Making: Course & Med Decision Making Pertinent Labs and Imaging studies reviewed. (See chart for details) See HPI. Alert and oriented x4. Ambulatory steady gait. Speaks in full clear sentences. No vision field loss. No conjunctival redness. No nystagmus. Spoke to Dr. Chaney at the eye clinic and he states to have them come on over about 1 PM and they will take a look at him. Eye Exam Visual accuity: See nursing note Eye exam: PERRL, Extraocular muscles intact. No signs of ruptured globe. Sclera clear. Red reflex present. Foreign body: No foreign bodies seen with examination or with lid flip exam. Graeme-pen: " Currently out of order and not working" Fluorescein test: No corneal abrasion. Anesthetic: Tetracaine [] (AYANNA ESTRADA APRN) Dragon Disclaimer: Dragon Disclaimer: This electronic medical record was generated, in whole or in part, using a voice recognition dictation system. (AYANNA ESTRADA APRN) Departure Departure Impression: Primary Impression: Blurry vision, left eye Disposition: HOME / SELF CARE / HOMELESS Condition: STABLE Referrals: NO PCP (PCP) Patient Instructions: Eye - Blurred Vision Additional Instructions: Go over to the eye clinic at 1 PM today. Reasons to come back to the emergency room would be sudden loss of vision, eye pain, swelling, discharge from your eye. Attending Signature Attending Signature I have reviewed the PA/CASHIER GAMBLING's note and plan of care. I was available for consultation as needed during the patient's visit in the emergency department. I agree with the clinical impression, plan, and disposition. (ALEJANDRA HERNÁNDEZ DO) AYANNA ESTRADA APRN May 13, 2021 11:59 ALEJANDRA HERNÁNDEZ DO May 14, 2021 09:14
[2021-05-13] MEDS ORDERED: TETRACAINE 0.5% OPHTH SOLUTION 4ML BOTTLE. OS ONE (12:00)
[2021-05-13] MEDS ORDERED: FLUORESCEIN OPHTH TEST STRIP. OS ONE (12:00)
== END 2021-05-13 12:20 | disposition home or self-care (01) ==
LOC: ER 10:59
DX: H53.8 Other visual disturbances (principal); F17.200 Nicotine dependence, unspecified, uncomplicated; F10.20 Alcohol dependence, uncomplicated; Y90.9 Presence of alcohol in blood, level not specified
CPT/HCPCS: 99283

== ENCOUNTER 2021-07-28 19:15 | Emergency (ER) | payer SELFPAY ==
[~2021-07-28] VITALS: Ht 185.4 cm; Wt 100.0 kg
[~2021-07-28 19:15] MED LIST changes: +AMLO-186 PO
[2021-07-28 19:47] LABS: BASO # 0.2 x10^3/uL (0.0-0.2); BASO % 2 % (0-3); EOS # 0.2 x10^3/uL (0.0-0.7); EOS % 1 % (0-3); HEMATOCRIT 22.8 % (39.0-53.0); HEMOGLOBIN 7.9 g/dL (13.0-17.5); LYMPH # 2.6 x10^3/uL (1.0-4.8); LYMPH % 20 % (24-48); MEAN CORPUSCULAR HEMOGLOBIN 29 pg (25-35); MEAN CORPUSCULAR HGB CONC 35 g/dL (31-37); MEAN CORPUSCULAR VOLUME 83 fL (79-100); MONO # 1.8 x10^3/uL (0.0-1.1); MONO % 13 % (0-9); NEUT # 8.4 x10^3/uL (1.8-7.7); NEUT % 64 % (31-73); PLATELET COUNT 511 x10^3/uL (140-400); RED BLOOD COUNT 2.74 x10^6/uL (4.30-5.70); WHITE BLOOD COUNT 13.2 x10^3/uL (4.0-11.0)
[2021-07-28 19:56] LABS: CALCIUM 8.5 mg/dL (8.5-10.1); CREATININE 2.5 mg/dL (0.7-1.3); GFR 35.3; POTASSIUM 4.2 mmol/L (3.5-5.1)
[2021-07-28 20:01] LABS: ALBUMIN 3.2 g/dL (3.4-5.0); ALBUMIN/GLOBULIN RATIO 0.6 (1.0-1.7); TOTAL BILIRUBIN 0.8 mg/dL (0.2-1.0); TOTAL PROTEIN 8.4 g/dL (6.4-8.2)
[2021-07-28 20:23] LABS: BILIRUBIN,URINE NEGATIVE (NEG); CLARITY,URINE CLEAR; COLOR,URINE YELLOW; NITRITE,URINE NEGATIVE (NEG); PROTEIN,URINE NEGATIVE (NEG-TRACE); UROBILINOGEN,URINE 0.2 mg/dL (0.2 mg/dL)
[2021-07-28 20:30] LABS: BARBITURATES NEG (NEG); BENZODIAZEPINES NEG (NEG); CANNABINOIDS NEG (NEG); COCAINE NEG (NEG); METHADONE NEG (NEG); OPIATES NEG (NEG); PHENCYCLIDINE POS (NEG)
[2021-07-28 20:31] LABS: AMPHETAMINE/METHAMPHETAMINE NEG (NEG)
[2021-07-28 20:34] LABS: BACTERIA,URINE 0 /HPF (0-FEW); RBC,URINE OCC /HPF (0-2)
[2021-07-28 20:45] LABS: % BASOS 1 % (0-3); % LYMPHS 21 % (24-48); % MONOS 11 % (0-10); % SEGS 67 % (35-66); PLT ESTIMATE INCREASED (ADEQUATE)
[2021-07-28 20:46] LABS: ANISOCYTOSIS SLIGHT; POIKILOCYTOSIS MOD; SICKLE CELLS PRESENT; SPHEROCYTES OCC; TARGET CELLS MANY
[2021-07-28 20:48] LABS: SCHISTOCYTES FEW
--- NOTE | 2021-07-28 20:56 | RAD ---
RS Compliance Statement: One or more of the following individualized dose reduction techniques were utilized for this examinat ion: 1. Automated exposure control 2. Adjustment of the mA and/or kV according to patient size 3. Use of iterative reconstruction technique CT head without contrast 07/28/2021 7:48 PM INDICATION: Left eye blurring. Lateral deviation. COMPARISON: September 25, 2019 CT head TECHNIQUE: Multiple axial CT images of the head were obtained from skull base through the vertex with out intravenous contrast. FINDINGS: Head: Ventricles, sulci and basal cisterns are within normal limits. There is no hydrocephalus. Gillespie-white matter differentiation is normal. There is no acute intracranial hemorrhage. There is no mass, mass e ffect or midline shift. Posterior fossa is normal in appearance. Visualized portions of the orbits are normal. Paranasal sinuses are well aerated. Mastoid air cells a re well aerated. Scalp and calvaria are normal. IMPRESSION: No acute intracranial hemorrhage. Electronically signed by: Roxane Diza MD (07/28/2021 8:53 PM) [facility]
--- NOTE | 2021-07-28 21:04 | PHYS DOC ---
Past Medical History Past Medical History: No Pertinent History Additional Past Medical Histor: priapism, DIALYSIS, SUBSTANCE ABUSE Past Surgical History: Other Additional Past Surgical Histo: priapism drainage, penial shunt, R hand, DIALYSIS PORT RIGHT CHEST Smoking Status: Current Every Day Smoker Alcohol Use: Heavy Drug Use: None Social History Narrative: SMOKES PCP General Adult EDM: Chief Complaint: EYE PROBLEMS HPI: HPI: Patient is a 35-year-old male presents to the emergency department reporting left eye blurriness today while watching the juice game. Patient reports he was drinking beer and smoking PCP when his left eye became blurry. Denies headaches, chest pain, nasal or chest congestion, denies recent fever or chills, denies other physical complaints or physical concerns. Patient reports history of cigarette smoking, PCP use, "I drink beer a lot ". Patient denies other physical complaints or physical concerns. Review of Systems: Review of Systems: 14 body systems of review of systems have been reviewed. See HPI for pertinent positives and negative responses, otherwise all other systems are negative, nonpertinent or noncontributory. Constitutional: Negative except as outlined in HPI above. Skin: Negative except as outlined in HPI above. Eyes: Negative except as outlined in HPI above. HENT: Negative except as outlined in HPI above. Respiratory: Negative except as outlined in HPI above. Cardiovascular: Negative except as outlined in HPI above. GI: Negative except as outlined in HPI above. : Negative except as outlined in HPI above. Musculoskeletal: Negative except as outlined in HPI above. Integument: Negative except as outlined in HPI above. Neurologic: Negative except as outlined in HPI above. Endocrine: Negative except as outlined in HPI above. Lymphatic: Negative except as outlined in HPI above. Psychiatric: Negative except as outlined in HPI above. Heart Score: C/O Chest Pain: No Risk Factors: Risk Factors: DM, Current or recent (<one month) smoker, HTN, HLP, family h istory of CAD, obesity. Risk Scores: Score 0 - 3: 2.5% MACE over next 6 weeks - Discharge Home Score 4 - 6: 20.3% MACE over next 6 weeks - Admit for Clinical Observation Score 7 - 10: 72.7% MACE over next 6 weeks - Early Invasive Strategies Allergies: Allergies: Allergies Coded Allergies Type Severity Reaction Last Updated Verified No Known Drug Allergies 08/28/20 No Physical Exam: PE: Constitutional: Well developed, well nourished, no acute distress, non-toxic appearance. 35-year-old male in no apparent distress. HENT: Normocephalic, atraumatic. Eyes: Conjunctiva normal, no discharge. Amblyopia of left eye, visual acuity 20/200 OS, 20/15 OD, 20/30 OU Neck: Normal range of motion, no stridor. Cardiovascular: No cyanosis appreciated, distal cap refill less than 2 seconds. Lungs & Thorax: Patient is in no respiratory distress, no audible adventitious lung sounds appreciated. Abdomen: Nontender, no abnormalities noted. Skin: Warm, dry, no erythema, no rash. Back: No tenderness, no deformities. Extremities: No tenderness, no cyanosis, no clubbing, ROM intact, no edema. Neurologic: Alert and oriented X 3, normal motor function, normal sensory f unction, no focal deficits noted. Psychologic: Affect normal, judgement normal, mood normal. Current Patient Data: Labs: Laboratory Tests Test 07/28/21 19:28 07/28/21 19:31 07/28/21 19:35 Glucose (Fingerstick) 97 mg/dL (70-99) White Blood Count 13.2 x10^3/uL (4.0-11.0) H Red Blood Count 2.69 x10^6/uL (4.30-5.70) L Hemoglobin 7.9 g/dL (13.0-17.5) L Hematocrit 22.8 % (39.0-53.0) L Mean Corpuscular Volume 83 fL (79-100) Mean Corpuscular Hemoglobin 29 pg (25-35) Mean Corpuscular Hemoglobin Concent 35 g/dL (31-37) Red Cell Distribution Width 17.0 % (11.5-14.5) H Platelet Count 511 x10^3/uL (140-400) H Neutrophils (%) (Auto) 64 % (31-73) Lymphocytes (%) (Auto) 20 % (24-48) L Monocytes (%) (Auto) 13 % (0-9) H Eosinophils (%) (Auto) 1 % (0-3) Basophils (%) (Auto) 2 % (0-3) Neutrophils # (Auto) 8.4 x10^3/uL (1.8-7.7) H Lymphocytes # (Auto) 2.6 x10^3/uL (1.0-4.8) Monocytes # (Auto) 1.8 x10^3/uL (0.0-1.1) H Eosinophils # (Auto) 0.2 x10^3/uL (0.0-0.7) Basophils # (Auto) 0.2 x10^3/uL (0.0-0.2) Segmented Neutrophils % 67 % (35-66) H Lymphocytes % 21 % (24-48) L Monocytes % 11 % (0-10) H Basophils % 1 % (0-3) Platelet Estimate Increased (ADEQUATE) Poikilocytosis Mod Anisocytosis Slight Spherocytes Occ Sickle Cells Present Target Cells Many Schistocytes Few Absolute Reticulocyte Count 0.035 x10^6/uL (0.020-0.120) Percent Reticulocyte Count 1.3 % (0.5-2.3) Immature Reticulocyte Fraction 0.56 (0.20-0.60) Sodium Level 142 mmol/L (136-145) Potassium Level 4.2 mmol/L (3.5-5.1) Chloride Level 107 mmol/L (98-107) Carbon Dioxide Level 25 mmol/L (21-32) Anion Gap 10 (6-14) Blood Urea Nitrogen 23 mg/dL (8-26) Creatinine 2.5 mg/dL (0.7-1.3) H Estimated GFR (Cockcroft-Gault) 35.3 BUN/Creatinine Ratio 9 (6-20) Glucose Level 100 mg/dL (70-99) H Calcium Level 8.5 mg/dL (8.5-10.1) Total Bilirubin 0.8 mg/dL (0.2-1.0) Aspartate Amino Transferase (AST) 47 U/L (15-37) H Alanine Aminotransferase (ALT) 60 U/L (16-63) Alkaline Phosphatase 140 U/L (46-116) H Total Protein 8.4 g/dL (6.4-8.2) H Albumin 3.2 g/dL (3.4-5.0) L Albumin/Globulin Ratio 0.6 (1.0-1.7) L Urine Collection Type Unknown Urine Color Yellow Urine Clarity Clear Urine pH 6.0 (<5.0-8.0) Urine Specific Potter 1.010 (1.000-1.030) Urine Protein Negative mg/dL (NEG-TRACE) Urine Glucose (UA) Negative mg/dL (NEG) Urine Ketones (Stick) Negative mg/dL (NEG) Urine Blood Trace (NEG) Urine Nitrite Negative (NEG) Urine Bilirubin Negative (NEG) Urine Urobilinogen Dipstick 0.2 mg/dL (0.2 mg/dL) Urine Leukocyte Esterase Negative (NEG) Urine RBC Occ /HPF (0-2) Urine WBC 1-4 /HPF (0-4) Urine Bacteria 0 /HPF (0-FEW) Urine Opiates Screen Neg (NEG) Urine Methadone Screen Neg (NEG) Urine Barbiturates Neg (NEG) Urine Phencyclidine Screen Pos (NEG) Urine Amphetamine/Methamphetamine Neg (NEG) Urine Benzodiazepines Screen Neg (NEG) Urine Cocaine Screen Neg (NEG) Urine Cannabinoids Screen Neg (NEG) Urine Ethyl Alcohol Pos (NEG) Laboratory Tests 07/28/21 19:31 Laboratory Tests 07/28/21 19:31 Vital Signs: Vital Signs Date Time Temp Pulse Resp B/P (MAP) Pulse Ox O2 Delivery O2 Flow Rate FiO2 07/28/21 19:15 98.7 111 18 135/91 (106) 97 Room Air 98.7 EKG: EKG: [] Radiology/Procedures: Radiology/Procedures: REASON: Left eye blurring, lateral deviation PROCEDURE: CT HEAD WO CONTRAST PQRS Compliance Statement: One or more of the following individualized dose reduction techniques were utilized for this examination: 1. Automated exposure control 2. Adjustment of the mA and/or kV according to patient size 3. Use of iterative reconstruction technique CT head without contrast 07/28/2021 7:48 PM INDICATION: Left eye blurring. Lateral deviation. COMPARISON: September 25, 2019 CT head TECHNIQUE: Multiple axial CT images of the head were obtained from skull base through the vertex without intravenous contrast. FINDINGS: Head: Ventricles, sulci and basal cisterns are within normal limits. There is no hydrocephalus. Gillespie-white matter differentiation is normal. There is no acute intracranial hemorrhage. There is no mass, mass effect or midline shift. Posterior fossa is normal in appearance. Visualized portions of the orbits are normal. Paranasal sinuses are well aerated. Mastoid air cells are well aerated. Scalp and calvaria are normal. IMPRESSION: No acute intracranial hemorrhage. Electronically signed by: Roxane Diaz MD (07/28/2021 8:53 PM) [facility] Course & Med Decision Making: Course & Med Decision Making ConcerningPertinent Labs and Imaging studies reviewed. (See chart for details) 35-year-old male, vital signs reviewed, presents to the emergency department with sudden onset of left eye blurriness after drinking beer and smoking PCP while watching the football game today. Patient's physical examination is unremarkable, will order visual acuity, CBC, CMP, urinalysis assay with urine drug screen, patient has a history of end-stage renal disease and family history of sickle cell, will order CBC, CMP, ESR, reticulocyte count to evaluate for family history of sickle cell CT imaging unremarkable, reticulocyte count studies nonconcerning for sickle cell anemia, patient is labs unremarkable or at baseline for end-stage renal disease, patient is a Thursday hemodialysis patient. Patient now reveals that he has a history of a detached retina from a injury and April, has followed up with ophthalmology however has not had surgery for repair, reports he has yet to make the appointment with his ophthalmology specialist ava joyce is following his retinal problems. Patient currently denies any symptoms. Reports the blurriness of his left eye has not changed since the initial blurriness from this past April. Patient is clinically sober, alert and oriented x3, in no apparent distress, nontoxic in appearance, has no complaints and wishes to go home at this time. Discussed with patient illicit drug use cessation, strict follow-up with ophthalmology regarding retinal issues, return to ER precautions or concerns, jed rebekahbaldemar had no further questions or concerns, is amenable to ED discharge planning, discussed with the patient all findings and diagnostic testing as well as the need to follow-up with their primary care provider for further evaluation and treatment or return to the ED if any new or worsening symptoms. Strict return precautions were also discussed at length, the patient voiced understanding and agreement with the discharge planning. The patient was nontoxic in appearance, in no apparent distress, and hemodynamically stable at the time of disposition. Dragon Disclaimer: Dragon Disclaimer: This electronic medical record was generated, in whole or in part, using a voice recognition dictation system. Departure Departure Impression: Primary Impression: Blurry vision, left eye Additional Impression: PCP (phencyclidine) abuse Disposition: HOME / SELF CARE / HOMELESS Condition: GOOD Referrals: NO PCP (PCP) Maria Antonia LEONARD MD Additional Instructions: You were seen today in the emergency department for blurred vision of the left eye, you had reported that this has been unchanged for several months now. He had indicated you have a detached retina of the left eye and are currently seeing a ophthalmology specialist. Please call Thursday after your hemodialysis to have your retinal issues reevaluated and ongoing care and management of your left eye retinal problems. Return to the emergency department for worsening symptoms or other concerns. Thank you for visiting our Emergency Department. It was a pleasure taking care of you today in the emergency department and we appreciate you trusting us with your care. If any additional problems come up don't hesitate to return to visit us. Please follow up with your primary care provider so they can plan additional care if needed and know about the problem that you had. If symptoms worsen come back to the Emergency Department. Any concerning symptoms that start such as chest pain, shortness of air, weakness or numbness on one side of the body, running high fevers or any other concerning symptoms return to the ER. EMERGENCY DEPARTMENT GENERAL DISCHARGE INSTRUCTIONS Thank you for coming to [facility] Emergency Department (ED) today and trusting us with you care. We trust that you had a positive experience in our Emergency Department. If you wish to speak to the department management, you may call the Director at [phone]. YOUR FOLLOW UP INSTRUCTIONS ARE FOLLOWS: 1. Do you have a private Doctor? If you do not have a private doctor, please ask for a resource list of physicians or clinics that may be able to assist you with follow up care. 2. The Emergency Physicain has interpreted your x-rays. The X-Ray specialist will also review them. If there is a change in the findings, you will be notified in 48 hours when at all possible. 3. A lab test or culture has been done, your results will be reviewed and you will be notified if you need a change in treatment. ADDITIONAL INSTRUCTIONS AND INFORMATION: 1. Your care today has been supervised by a physician who is specially trained in emergency care. Many problems require more than one evaluation for a complete diagnosis and treatment. We recommend that you schedule your follow up appointment as recommended to ensure complete treatment of you illness or injury. If you are unable to obtain follow up care and continue to have a problem, or if your condition worsens, we recommend that you return to the ED. 2. We are not able to safely determine your condition over the phone nor are we able to give sound medical advice over the phone. For these safety reasons, if you call for medical advice we will ask you to come to the ED for further evaluation. 3. If you have any questions regarding these discharge instructions please call the ED at [phone]. SAFETY INFORMATION: In the interest of safety, wellness, and injury prevention; we encourage you to wear your sealbelt, if you smoke; quite smoking, and we encourage family to use a protective helmet for bicycling and other sporting events that present an increased risk for head injury. IF YOUR SYMPTOMS WORSEN OR NEW SYMPTOMS DEVELOP, OR YOU HAVE CONCERNS ABOUT YOUR CONDITION; OR IF YOUR CONDITION WORSENS WHILE YOU ARE WAITING FOR YOUR FOLLOW UP APPOINTMENT; EITHER CONTACT YOUR PRIMARY CARE DOCTOR, THE PHYSICIAN WHOSE NAME AND NUMBER YOU WERE GIVEN, OR RETURN TO THE ED IMMEDIATELY. ALEJANDRA ZHAO APRN Jul 28, 2021 21:04
[2021-07-28 21:52] VITALS: BP 161/99
== END 2021-07-29 00:30 | disposition home or self-care (01) ==
LOC: ER 19:15
DX: H53.8 Other visual disturbances (principal); F16.10 Hallucinogen abuse, uncomplicated; R51.9 Headache, unspecified; F10.20 Alcohol dependence, uncomplicated; Y90.9 Presence of alcohol in blood, level not specified; F17.210 Nicotine dependence, cigarettes, uncomplicated
CPT/HCPCS: 36415; 70450; 80053; 80307; 81001; 82962; 85007; 85025; 85045; 85651; 99285-25

== ENCOUNTER 2021-10-14 02:40 | Emergency (ER) | payer SELFPAY ==
[~2021-10-14] VITALS: Ht 182.9 cm; Wt 98.0 kg
--- NOTE | 2021-10-14 02:49 | PHYS DOC ---
Past Medical History Past Medical History: No Pertinent History Additional Past Medical Histor: priapism, DIALYSIS, SUBSTANCE ABUSE Past Surgical History: Other Additional Past Surgical Histo: priapism drainage, penial shunt, R hand, DIALYSIS PORT RIGHT CHEST Smoking Status: Current Every Day Smoker Alcohol Use: Heavy Drug Use: None General Adult EDM: Chief Complaint: General Complaint HPI: HPI: Patient is a 36 year old male who presents from home via EMS with left second toe pain. He reports that he thinks he stubbed his toe on the refrigerator. He is not sure when he actually did this. He reports that it has been bothering him for a while. He denies any crush injury. Denies redness or swelling. Denies numbness or tingling. He denies any foot or ankle pain. He denies dizziness, headache, chest pain, dyspnea, abdominal pain, nausea or vomiting. He is intoxicated, mid to drinking alcohol. He has a history of chronic alcohol use disorder. He also has history of PCP use. He denies using illicit drugs recently. He has been admitted here multiple times, for some significant issues related to his substance abuse, including dehydration, acidosis and newly diagnosed end-stage renal disease. Diagnosis of end-stage renal disease began in June 2021. He was seen by nephrology services, dialysis was initiated. He is not currently on dialysis, and he reports that earlier this month, his ephrologist told him that his kidneys were working properly, his dialysis port was removed. It sounds like he subsequently followed up at [facility] for this issue. He denies urinary symptoms, reports appropriate and normal urine output. Also, historically his blood pressure has been wildly out of control, today his blood pressure is normal. Review of Systems: Review of Systems: Constitutional: Denies fever or chills. [] Respiratory: Denies cough or shortness of breath. [] Cardiovascular: Denies chest pain or edema. [] GI: Denies abdominal pain, nausea, vomiting : Denies urine output changes or urinary symptoms Musculoskeletal: Left second toe pain Integument: Denies rash or open wounds. Neurologic: Denies headache, focal weakness or sensory changes. [] Psychiatric: Chronic mood disturbance, alcohol use disorder Heart Score: C/O Chest Pain: No Risk Factors: Risk Factors: DM, Current or recent (<one month) smoker, HTN, HLP, family history of CAD, obesity. Risk Scores: Score 0 - 3: 2.5% MACE over next 6 weeks - Discharge Home Score 4 - 6: 20.3% MACE over next 6 weeks - Admit for Clinical Observation Score 7 - 10: 72.7% MACE over next 6 weeks - Early Invasive Strategies Allergies: Allergies: Allergies Coded Allergies Type Severity Reaction Last Updated Verified No Known Drug Allergies 08/28/20 No Physical Exam: PE: Constitutional: Well developed, well nourished, no acute distress, non-toxic appearance. He does appear to be intoxicated. Neck: Normal range of motion, no tenderness, supple, no stridor. [] Cardiovascular:Heart rate regular rhythm, was 2 dorsalis pedis and +2 radial pulse Lungs & Thorax: Bilateral breath sounds clear to auscultation, no rales, rhonchi or wheezes Abdomen: Abdomen is soft, nondistended, nontender to palpation Skin: Warm, dry, no erythema, no rash. No open wounds of the foot or left great toe Back: No tenderness, no CVA tenderness. Range of motion. Extremities: No deformity. No edema. No calf tenderness. Mild tenderness to palpation of the left second toe. No warmth or erythema. No open wounds. No palpable posterior step-offs. No dusky discoloration. Limbs are warm and well- perfused appearing. Neurologic: Patient appears to be intoxicated, though he is awake, alert, oriented x3, grossly normal motor function, sensation grossly intact, no facial asymmetry, speech is clear Psychologic: Affect flat, intoxicated., He is cooperative and pleasant. EKG: EKG: [] Radiology/Procedures: Radiology/Procedures: IMAGING REPORT Signed PATIENT: ARLET HARRIS SACCOUNT: [id number] : 06/25/1977 LOCATION: ER AGE: 44 SEX: F EXAM STATUS: REG ER ORD. PHYSICIAN: DARLENE BRIONES DO REASON: right flank pain, hx of kidney stones PROCEDURE: CT ABDOMEN PELVIS WO CONTRAST Exam: CT abdomen/pelvis without intravenous contrast Indication: Right flank pain, history of kidney stones Comparison: CT abdomen pelvis 06/24/2021 Technique: Helical CT imaging performed of the abdomen and pelvis without the use of intravenous contrast. Sagittal and coronal reformats were obtained. One or more of the following individualized dose reduction techniques were utilized for this examination: 1. Automated exposure control 2. Adjustment of the mA and/or kV according to patient size 3. Use of iterative reconstruction technique. Findings: Inherently limited evaluation without intravenous contrast. Lower chest: Unchanged atelectasis or scarring in the right middle lobe. Unchanged mosaic attenuation in the lung bases, nonspecific but can be seen with air trapping. The heart is normal in size. Liver: Normal. Gallbladder/Biliary Tree: The gallbladder is surgically absent. Bile ducts are normal. Pancreas: Normal. Spleen: Normal. Adrenal Glands: There is a 1.4 cm left adrenal adenoma. The right adrenal gland is normal. Kidneys/Ureters/Bladder: Kidneys are normal in size. There is a punctate calculus in the left kidney. No right nephrolithiasis. No hydronephrosis. Ureters are normal. The bladder is decompressed, limiting evaluation. Reproductive Organs: The uterus is surgically absent. No adnexal mass. Stomach, small bowel, and colon: There are surgical changes of distal gastrectomy. No small bowel obstruction. The colon is normal. The appendix is not clearly seen. Vasculature: Abdominal aorta is normal in caliber. No vascular calcifications. An IVC filter is in place with tip below the renal veins and tines extending through the wall of the IVC, unchanged. Lymph Nodes: Multiple prominent lymph nodes in the right lower quadrant, unchanged. Peritoneum and retroperitoneum: No free fluid or free air. Bones: No acute osseous abnormality. Miscellaneous: None IMPRESSION: 1. No right nephrolithiasis or hydronephrosis. Nonobstructing punctate left nephrolithiasis. 2. Surgical changes of distal gastrectomy. No evidence of bowel obstruction 3. Unchanged mosaic attenuation in the lung bases, nonspecific but can be seen with air trapping. 4. IVC filter present: A retrievable IVC filter is noted, and the referring physician is encouraged to ensure that a management plan for this filter is in place. If no such plan is present, referral to an interventional clinician on a non-emergent basis should be considered. The [employer] appropriateness criteria for placement and management of IVC filters can be found on the web at: www.acr.org/quality-safety/appropriateness-criteria/interventional Electronically signed by: Acacia Trinidad MD (10/14/2021 1:47 AM) [facility] DICTATED and SIGNED BY: ACACIA TRINIDAD MD DATE: 10/14/21 [id number] 0 Course & Med Decision Making: Course & Med Decision Making Pertinent Labs and Imaging studies reviewed. (See chart for details) ER Tylenol given for pain. Postop shoe given. I discussed the findings, differential diagnosis and plan of care with him. No fracture noted on x-ray. Exam is otherwise benign. Vital signs are stable. I recommend that he follow- up with his primary care physician as well as his script manager. There is no current indication for further invasive exams, imaging or laboratory evaluation at this time based on current clinical presentation and complaint. I gave him very strict return precautions. He verbalizes understanding. Siria Disclaimer: Siria Disclaimer: This electronic medical record was generated, in whole or in part, using a voice recognition dictation system. Departure Departure Impression: Primary Impression: Sprain of second toe, left Qualified Codes: S93.505A - Unspecified sprain of left lesser toe(s), initial encounter Disposition: HOME / SELF CARE / HOMELESS Condition: STABLE Referrals: NO PCP (PCP) Patient Instructions: Crush Injury, Fingers or Toes Additional Instructions: You may use [id number] Tylenol as needed for pain. You may ice and elevate your foot at rest. Return for any new injury or trauma cough you develop a temperature 100.4 or higher, if you develop severe toe redness, open wounds, bleeding or for any other concerns. Please follow-up with a primary care physician. I also encourage her to follow-up with your kidney doctor to make sure your kidneys continue to work properly. DARLENE BRIONES DO Oct 14, 2021 02:49
--- NOTE | 2021-10-14 03:18 | RAD ---
EXAM: XR FOOT_LEFT 3 VIEWS 10/14/2021 2:56 AM CLINICAL INDICATION: Toe pain COMPARISON: None TECHNIQUE: 3 views of the left foot FINDINGS: No acute fracture. Alignment is normal. Joint spaces are maintained. Mild medial soft tiss ue swelling along the midfoot. IMPRESSION: No acute osseous abnormality. Mild medial soft tissue swelling of the midfoot. Electronically signed by: Acacia Trinidad MD (10/14/2021 3:15 AM) [facility]
[2021-10-14] MEDS ORDERED: IBUPROFEN 400 MG TABLET. PO ONE (03:30)
[2021-10-14] MEDS ORDERED: ACETAMINOPHEN 500 MG TABLET PO ONE (03:30)
[2021-10-14 03:45] VITALS: BP 131/85
== END 2021-10-14 03:47 | disposition home or self-care (01) ==
LOC: ER 02:40
DX: S93.505A Unspecified sprain of left lesser toe(s), initial encounter (principal); F17.200 Nicotine dependence, unspecified, uncomplicated; F10.20 Alcohol dependence, uncomplicated; Y90.9 Presence of alcohol in blood, level not specified; W22.03XA Walked into furniture, initial encounter; Y93.89 Activity, other specified; Y92.89 Other specified places as the place of occurrence of the external cause; Y99.8 Other external cause status
CPT/HCPCS: 73630; 99283